=== PATIENT | male | born 1960 | race Caucasian/White ===

== ENCOUNTER → 2016-07-22 | Outpatient (CLI) | payer OTHER ==
[2016-07-22 14:37] LABS: Blood Urea Nitrogen 10 mg/dL (9-20); Non-African American GFR(MDRD) >60 (>60 ml/min/1.73 sqM)
--- NOTE | 2016-07-22 15:28 | CT ---
EXAMINATION TYPE: CT brain w con DATE OF EXAM: 07/22/2016 3:12 PM COMPARISON: NONE HISTORY: Lung cancer. Headache. CT DLP: 1029.90 mGycm Automated exposure control for dose reduction was used. CONTRAST: CT scan of the head is performed with IV Contrast, patient injected with 100 ml mL of Omnipaque 300. FINDINGS: There is tubular and vermiform enhancement involving the left frontal lobe. Periventricular white mat ter shows patchy low attenuation. There is cortical atrophy. No focal mass. No hydrocephalus or hemor rhage suspected. The ventricles and sulci are within normal limits in size. The globes are intact an d the visualized sinuses are clear. IMPRESSION: Findings thought likely to represent vascular malformation left frontal lobe, brain MRI with and with out contrast suggested
== END | disposition home or self-care (01) ==
LOC: RADCTMAIN 13:36
PROVIDERS: ATTEND Internal Medicine Hematology & Oncology
DX: C34.32 Malignant neoplasm of lower lobe, left bronchus or lung (principal); R51 Headache
CPT/HCPCS: 82565; 84520; 70460; 36415; Q9967

== ENCOUNTER → 2016-08-08 | Outpatient (CLI) | payer OTHER ==
--- NOTE | 2016-08-08 17:08 | MR ---
EXAMINATION TYPE: MR brain wo/w con DATE OF EXAM: 08/08/2016 COMPARISON: CT brain July 22, 2016. HISTORY: Lung CA, headaches TECHNIQUE: Multiplanar, multisequence images of the brain and brainstem is performed without and with IV contras t, utilizing 20 mL intravenous MultiHance . FINDINGS: Diffusion weighted images demonstrate no evidence of a recent infarct or other diffusion ab normality. There is no worrisome extra-axial fluid collection. The ventricular system and cisternal spaces are normal in size and appearance. The brain volume is age appropriate. Septum pellucidum ve rgae is present. There are scattered foci of T2 hyperintensity seen throughout the deep and periventr icular white matter bilaterally. Approximately 40 scattered lesions are present. Lesions are nonspeci fic in appearance and distribution but most likely on basis of product of chronic small vessel ischem ic change in patient of this age. Midline structures demonstrate normal morphology. The craniocervical junction appears within normal limits. Post contrast images demonstrate no suspicious enhancing intraparenchymal mass. Correspondin g to CT there prominent small vessels anterior left temporal regions bilaterally, correlating with pr ominent collateral or branching vessels possibly related to small caliber left middle cerebral artery . No suspicious nodular enhancement is present. The dural venous sinuses appear patent. The visualize d sinuses are clear and the globes are intact. IMPRESSION: No worrisome enhancing intraparenchymal mass is seen to suggest metastatic disease. Moder ate nonspecific white matter changes most likely on basis of chronic small vessel ischemic change.
== END | disposition home or self-care (01) ==
LOC: RADMRIMAIN 14:00
PROVIDERS: ATTEND Internal Medicine Hematology & Oncology
DX: R90.82 White matter disease, unspecified (principal); C34.90 Malignant neoplasm of unspecified part of unspecified bronchus or lung
CPT/HCPCS: 70553; A9577

== ENCOUNTER → 2016-08-14 | Outpatient (CLI) | payer OTHER ==
--- NOTE | 2016-08-31 14:47 | CT ---
EXAMINATION TYPE: CT ChestAbdPelvis w con DATE OF EXAM: 08/14/2016 INDICATION: Lung CA follow up COMPARISON: 04/17/2016 CT chest abdomen pelvis [facility] CT DLP: 1758 mGycm CONTRAST: Performed with Oral Contrast and with IV Contrast, patient injected with 100 mL of Omnipaque 300. TECHNIQUE: Axial images at 5 mm thick sections. Reconstructed images in the coronal plane. Delayed images through the kidneys. Images are presented 08/31/2016 upon receipt the comparison CT images. FINDINGS: CT CHEST: Portion of the thyroid visualized is normal. There is a left lower lobe heterogenous mass measuring 6.2 transverse by 4.0 AP by 7.0 craniocaudal d imension. This is smaller than the comparison of 2 04/17/2016. There is a hyperdense 1.2 cm subcarinal lymph node. Consolidation with air bronchograms is along the left mediastinal border. A small left pleural effusion is present. The ascending aorta diameter at the level of the main pulmonary artery is 3.4 cm. The main pulmonary artery diameter at the bifurcation is 3.0 cm. There is a filling defect within the left main pulmonary artery suggestive for thrombus extending int o the left lower lobe. CT ABDOMEN: Liver: Normal Spleen: Normal Pancreas: Normal Adrenal glands: The adrenal glands are normal. Gallbladder: Normal Kidneys: No masses are evident. No hydronephrosis is present. No cysts are present. Delayed images were obtained through the kidneys, which remain unremarkable. Aorta: Vascular calcification is within the aorta. Inferior vena cava: Normal. No abnormal abdominal or pelvic adenopathy is evident. CT PELVIS: Loops of bowel within the abdomen and pelvis are normal. There are loops of bowel which are incom pletely distended or lack oral contrast limiting their evaluation. Oral contrast does extend into the distal colon. Appendix: Normal as visualized. Urinary bladder: Normal. Genitourinary structures: Prostate is prominent. Osseous structures: No suspicious lytic or sclerotic lesions. IMPRESSIONS: 1. Filling defect within the left main pulmonary artery compatible with a thrombus of indeterminate a ge. 2. Left lower lobe mass appears smaller than comparison of April 2016. 3. Small left pleural effusion similar to comparison. 4. Hyperdense subcarinal lymph node, present previously, and stable in size..
== END | disposition home or self-care (01) ==
LOC: RADCTMAIN 06:43
PROVIDERS: ATTEND Internal Medicine Hematology & Oncology
DX: C34.32 Malignant neoplasm of lower lobe, left bronchus or lung (principal); J90 Pleural effusion, not elsewhere classified
CPT/HCPCS: 71260; 74177; Q9967

== ENCOUNTER → 2016-08-29 | Outpatient (CLI) | payer OTHER ==
--- NOTE | 2016-08-31 08:49 | PE ---
EXAMINATION TYPE: PET CT fusion skull to thigh DATE OF EXAM: 08/29/2016 COMPARISON: CT chest abdomen pelvis 08/14/2016, comparison [place] CT chest abdomen pelvis 04/17/2016 Prior PET/CT: None, this is reported as subsequent follow-up, prior PET C Ts are not available at this location. HISTORY: Lung cancer TECHNIQUE: Following the intravenous administration of 13.37 mCi of F-18 FDG, whole body images are performed from the skull base to the midthigh. Images are reviewed on the computer in the coronal, a xial, and sagittal planes. Reconstructed rotating images are created on independent workstation and reviewed on the computer. A localization and attenuation correction CT is performed in conjunction with the PET scan. DLP: 459.70 mGycm SCAN: Subsequent Blood glucose: 95 mg/dL Average Mediastinum SUV: 1.7 Average Liver SUV: 2.25 FINDINGS: NECK: No abnormal uptake THORAX: There is a left lower lobe infrahilar mass which is abnormal uptake measuring 12.1 SUV compat ible with a neoplasm. Slightly lateral and posterior to this mass is a second focal area of radiotrac er accumulation with an SUV value of 6.3 suspicious for neoplasm. Abnormal uptake is within the subca rinal hyperdense lymph node with an SUV value of 5.76 compatible with neoplastic process. ABDOMEN: There is a suggestion of some focal uptake within the cecum at 2 small sites. Normal uptake within the colon could be considered within the differential although these appear somewhat focal. Th e differential could include small neoplastic lesions at this level. This would have an SUV value of 3.66 which is elevated, PET image 219 and adjacent measuring SUV value of 3.31, PET image 216. There is a subtle area of uptake posterior to the liver within the fat is may be retroperitoneal. Thi s has an SUV value 1.05 which is intermediate. This may be too small for accurate evaluation or could be an inflammatory change at this level. PET image 181 PELVIS: No abnormal uptake OSSEOUS STRUCTURES: No abnormal uptake LOCALIZATION CT: Ascending thoracic aorta at the level of the main pulmonary artery is 3.6 cm. The ma in pulmonary artery at the bifurcation is 3.3 cm. Soft tissue thickening along the left mediastinal b order is again evident extending into the left hilar region. This appears to encase and narrow the li ngular bronchus. Left lower lobe consolidation is present. Subcarinal lymph node appears somewhat hyp erdense and enlarged measuring 1.2 cm. The left pleural effusion is less well visualized than the [facility] 08/15/2015 CT with contrast. COMPARISON: Left lower lobe mass appears smaller than the April 2016 comparison and likely smaller than the 08/14/2016 CT comparison. IMPRESSION: 1. Abnormal uptake within the left lower lobe mass compatible with neoplasm. This may be smaller than comparison CT. 2. Second focal area suspicious for neoplasm slightly posterior inferior and lateral to the larger ne oplasm. 3. Suspected metastatic lymph node subcarinal region. 4. Two small focal areas within the cecum with elevated SUV value. Small neoplasms within this region are not excluded. It is possible to have normal uptake within the colon although these 2 areas appea r more focal than expected for typical normal uptake.
== END | disposition home or self-care (01) ==
LOC: RADPETMAIN 08:11
PROVIDERS: ATTEND Internal Medicine Hematology & Oncology
DX: C34.32 Malignant neoplasm of lower lobe, left bronchus or lung (principal)
CPT/HCPCS: 78815; A9552

== ENCOUNTER → 2016-09-08 | Outpatient (CLI) | payer OTHER ==
[2016-09-08 14:01] LABS: Blood Urea Nitrogen 11 mg/dL (9-20); Non-African American GFR(MDRD) >60 (>60 ml/min/1.73 sqM)
--- NOTE | 2016-09-08 14:02 | US ---
EXAMINATION TYPE: US venous doppler duplex LE BI DATE OF EXAM: 09/08/2016 1:32 PM COMPARISON: NONE CLINICAL HISTORY: 56-year-old male C34.32 lung ca. Bilateral edema SIDE PERFORMED: Bilateral TECHNIQUE: The lower extremity deep venous system is examined utilizing real time linear array sonog [place] with graded compression, doppler sonography and color-flow sonography. FINDINGS: VESSELS IMAGED: External Iliac Vein (EIV) Common Femoral Vein Deep Femoral Vein Greater Saphenous Vein * Femoral Vein Popliteal Vein Small Saphenous Vein * Proximal Calf Veins (* superficial vessels) Right Leg: Negative for DVT Left Leg: Negative for DVT IMPRESSION: No evidence for DVT within the bilateral lower extremities imaged from the groin to the upper calves.
--- NOTE | 2016-09-08 14:58 | CT ---
EXAMINATION TYPE: CT angio chest DATE OF EXAM: 09/08/2016 COMPARISON: 08/14/2016 HISTORY: 56-year-old male with known lung CA. Shortness of breath. TECHNIQUE: Contiguous axial scanning of the chest performed with IV Contrast, patient injected with 1 00 mL of Omnipaque 350. Coronal/sagittal reconstructions performed. CT DLP: 210.9 mGycm Automated exposure control for dose reduction was used. FINDINGS: The heart is normal size without pericardial effusion. Aorta is normal caliber with conventional arch vessel branching anatomy. Subcarinal lymph node redemonstrated measuring 1.2 cm. Otherwise, no convincing thoracic lymphadenopa thy. Satisfactory opacification of the pulmonary arterial system without evidence for pulmonary embolus. There is left hilar, infrahilar, and extensive lower lobe consolidation encasing bronchi, cutting off the lingual bronchus, and markedly narrowing the left lower lobe and more distal pulmonary arterial branches. Abnormal density also extends into the medial left upper lobe as seen previously. Small left pleural effusion. Overall appearance is similar to 08/14/2016. There is some mosaic attenua tion seen throughout portions of the aerated left lung suggesting small airways disease. Mild diffuse bronchial wall thickening suggests bronchitis or chronic asthma. Visualized upper abdomen shows no gross abnormality. Bones: No osseous destructive process. IMPRESSION: 1. NO EVIDENCE FOR PULMONARY EMBOLUS. THE EXTENSIVE LEFT-SIDED PERIHILAR AND LOWER LOBE CONSOLIDATION /MASS ENCASES BRONCHI AND VESSELS, SEVERELY NARROWING LOWER LOBE PULMONARY ARTERIAL BRANCHES. 2. STABLE METASTATIC SUBCARINAL LYMPH NODE.
== END | disposition home or self-care (01) ==
LOC: RADCTMAIN 12:33
PROVIDERS: ATTEND Internal Medicine Hematology & Oncology
DX: C34.32 Malignant neoplasm of lower lobe, left bronchus or lung (principal); C77.1 Secondary and unspecified malignant neoplasm of intrathoracic lymph nodes; R22.43 Localized swelling, mass and lump, lower limb, bilateral; I28.8 Other diseases of pulmonary vessels
CPT/HCPCS: 82565; 84520; 93970; 71275; 36415; Q9967

== ENCOUNTER → 2016-11-03 | Outpatient (CLI) | payer OTHER ==
[2016-11-03 13:52] LABS: Blood Urea Nitrogen 11 mg/dL (9-20); Non-African American GFR(MDRD) >60 (>60 ml/min/1.73 sqM)
--- NOTE | 2016-11-03 15:47 | CT ---
EXAMINATION TYPE: CT ChestAbdPelvis w con DATE OF EXAM: 11/03/2016 INDICATION: Follow up scan per patient. history of lung cancer. COMPARISON: 09/08/[address] chest abdomen pelvis 08/14/2016 CT DLP: 686.9 mGycm CONTRAST: Performed with Oral Contrast and with IV Contrast, patient injected with 100 mL of Omnipaque 300. TECHNIQUE: Axial images at 5 mm thick sections. Reconstructed images in the coronal plane. Delayed images through the kidneys. FINDINGS: CT CHEST: Portion of the thyroid visualized is normal. There is a minimal loculated fluid collection at the posterior left upper lobe. Large soft tissue den sities in the left perihilar region. Note is made of filling defect within the main left pulmonary ar et[place] with some minimal irregular wall. This extends towards a calcification posteriorly. This exam is compared with 09/08/2016. This was present previously however, this is now obstructed the left lower lobe pulmonary artery. This appears to be within the left main pulmonary artery and appears to be tete or. Thrombus could be considered. Couple of small shotty lymph nodes are in the pretracheal space. Enlarged adenopathy is not identifie d. A 1.0 cm hyperdense subcarinal lymph node is smaller than comparison. Left lower lobe mass versus consolidation is present. This measures 6.5 x 4.4 cm whereas this measure d 6.2 x 4.0 cm previously. The ascending aorta diameter at the level of the main pulmonary artery is 3.6 cm. The main pulmonary artery diameter at the bifurcation is 2.[address] ABDOMEN: Liver: Normal Spleen: Normal Pancreas: Normal Adrenal glands: The adrenal glands are normal. Gallbladder: Normal Kidneys: No masses are evident. No hydronephrosis is present. No cysts are present. Delayed images were obtained through the kidneys, which remain unremarkable. There is a new nodule measuring 1.2 cm posterior and lateral to the right mid kidney. Series 3 image 86. Metastatic lesion suspected. Aorta: Normal Inferior vena cava: Normal. CT PELVIS: Loops of bowel within the abdomen and pelvis are normal. There are loops of bowel which are incompl etely distended or lack oral contrast limiting their evaluation. Appendix: Normal as visualized. Urinary bladder: Normal. Genitourinary structures: Prostate is prominent contains calcification. Osseous structures: No suspicious lytic or sclerotic lesions. Facet degenerative changes within the l umbar spine. IMPRESSIONS: 1. Slight change in the left lower lobe lung mass size. 2. New nodule posterior lateral to the right kidney suspected to be a metastatic soft tissue deposit. 3. Enlarging filling defect left main pulmonary artery appears to now obstruct the left lower lobe pu lmonary artery. This was present previously but is increased in size and is suspected to be tumor.
== END | disposition home or self-care (01) ==
LOC: RADCTMAIN 13:06
PROVIDERS: ATTEND Internal Medicine Hematology & Oncology
DX: C34.32 Malignant neoplasm of lower lobe, left bronchus or lung (principal); N28.89 Other specified disorders of kidney and ureter; I77.89 Other specified disorders of arteries and arterioles
CPT/HCPCS: 82565; 84520; 71260; 74177; 36415; Q9967

== ENCOUNTER 2016-11-23 00:37 | Inpatient (IN) | payer OTHER ==
[2016-11-23] MEDS ORDERED: SODIUM CHLORIDE 0.9% 500 ML IV STA (00:55)
[2016-11-23] MEDS ORDERED: DILTIAZEM 125 MG in SODIUM CHLORIDE 0.9% 100 ML IV ONE (00:56)
[2016-11-23] MEDS ORDERED: DILTIAZEM 5 MG/ML 5 ML VIAL IVP STA (00:56)
[2016-11-23 01:10] LABS: Basophils # (A) 0.1 k/uL (0-0.2); Basophils % (A) 1 %; CH 30.9; CHCM 31.9; Eosinophils # (A) 0.2 k/uL (0-0.7); Eosinophils % (A) 2 %; HCT 47.6 % (39.0-53.0); HDW 3.19; HGB 15.4 gm/dL (13.0-17.5); Hypochromasia Slight; Luc # (Auto) 0.33; Luc % (Auto) 3; Lymphocytes % (A) 8 %; MCH 31.4 pg (25.0-35.0); MCHC 32.4 g/dL (31.0-37.0); Mean Platelet Volume 6.4; Monocytes # (A) 1.5 k/uL (0-1.0); Monocytes % (A) 12 %; Neutrophils # (A) 9.7 k/uL (1.3-7.7); Neutrophils % (A) 76 %; RBC 4.91 m/uL (4.30-5.90); RDW 14.7 % (11.5-15.5); WBC 12.8 k/uL (3.8-10.6); WBC (Perox) 12.59
--- NOTE | 2016-11-23 01:11 | ED ---
Chest Pain HPI - General Chief Complaint: Chest Pain Stated Complaint: Chest pain Time Seen by Provider: 11/23/16 00:52 Source: patient Mode of arrival: wheelchair Limitations: no limitations - History of Present Illness Initial Comments: This patient is a 56-year-old man who presents to be evaluated for chest pain. Patient states that this woke him from sleep 2 hours ago. He indicates the substernal area. He states that its a heavy feeling. It is worse if he walks. It is moderate intensity. The patient has not noted any relieving factors. The pain was accompanied by feeling short of breath and also being dyspneic. The patient notes that he had been released from one today around 3 PM. He had been admitted there for 3 days to have evaluation for chest pain. The patient and his relate that he was diagnosed with a blood clot in the lung, and he was started on Lovenox today prior to leaving there. They believe that the last dose of that was around 3 PM just before he was discharged. Patient has history of lung cancer. He states that he has finished his chemotherapy and he was due to start immunotherapy on Wednesday but was at instead. MD Complaint: chest pain Onset/Timin -: hour(s) Onset: awoke with symptoms Pain Location: substernal Pain Radiation: none Severity: severe Quality: heaviness Consistency: constant Improves With: nothing Worsens With: exertion Anginal Symptoms: diaphoresis, dyspnea Treatments Prior to Arrival: none - Related Data Home Medications Medication Instructions Recorded Confirmed Enoxaparin [Lovenox] 80 mg SQ Q12H 11/23/16 11/23/16 Allergies Allergy/AdvReac Type Severity Reaction Status Date / Time No Known Allergies Allergy Verified 11/23/16 00:45 Review of Systems ROS Statement: Those systems with pertinent positive or pertinent negative responses have been documented in the HPI. ROS Other: All systems not noted in ROS Statement are negative. Constitutional: Reports: fever. Denies: chills Respiratory: Reports: dyspnea. Denies: cough, hemoptysis Cardiovascular: Reports: chest pain Gastrointestinal: Denies: abdominal pain, vomiting, diarrhea Genitourinary: Denies: dysuria, hematuria Musculoskeletal: Denies: back pain Skin: Denies: rash Neurological: Denies: headache, weakness, numbness EKG Findings - EKG Results: EKG: normal axis, normal QRS EKG shows: atrial fibrillation (Rate approximately 170 bpm) - Blocks, [place], Hypertrophy, ST Abn: Chamber hypertrophy or enlargement: only voltage criteria for left ventricular hypertrophy Repolarization changes or abnormalities: ST suggestive of injury Past Medical History Past Medical History: Cancer Additional Past Medical History / Comment(s): Lung Ca History of Any Multi-Drug Resistant Organisms: None Reported Past Surgical History: No Surgical Hx Reported Past Psychological History: No Psychological Hx Reported Smoking Status: Former smoker Past Alcohol Use History: Daily Past Drug Use History: None Reported General Exam Limitations: no limitations General appearance: alert, in distress Head exam: Present: atraumatic, normocephalic Eye exam: Present: normal appearance. Absent: scleral icterus, conjunctival injection ENT exam: Present: normal oropharynx Respiratory exam: Present: wheezes, decreased breath sounds (Left base). Absent : respiratory distress, rales, rhonchi, stridor, chest wall tenderness Cardiovascular Exam: Present: tachycardia (Rate approximately 152 at my exam), irregular rhythm, systolic murmur (Grade 1/6 systolic ejection murmur). Absent : diastolic murmur, rubs, gallop GI/Abdominal exam: Present: soft, normal bowel sounds, hernia (There does appear to be a small umbilical hernia without peritoneal signs. There is minimal tenderness at the hernia. The patient states he did have ultrasound of this while he was in the hospital). Absent: distended, tenderness, guarding, rebound Extremities exam: Present: normal inspection, normal capillary refill. Absent: pedal edema, calf tenderness Back exam: Present: normal inspection. Absent: CVA tenderness (R), CVA tenderness (L) Neurological exam: Present: alert Skin exam: Present: warm, dry, intact, normal color. Absent: rash Course Vital Signs 11/23/16 11/23/16 11/23/16 00:41 01:03 01:16 Temperature 96.9 F L Pulse Rate 83 160 H 157 H Respiratory 20 22 20 Rate Blood Pressure 82/50 89/57 O2 Sat by Pulse 97 97 96 Oximetry 11/23/16 11/23/16 01:57 02:35 Temperature 98.6 F Pulse Rate 98 92 Respiratory 20 20 Rate Blood Pressure 109/59 107/62 O2 Sat by Pulse 97 98 Oximetry Chest Pain MDM - MDM This patient is 56-year-old man presenting with the acute onset of chest pain tonight. Patient is in atrial fibrillation with rapid ventricular rate and per the patient and his this is a new diagnosis. Patient is started on Cardizem. In addition, he is sent for CT of the chest to rule out worsening of the pulmonary embolism, as he is not yet therapeutic with Coumadin. He has been given first dose of Lovenox but that was only today. The patient's chest CT does show pleural effusion. There may possibly be a component of pneumonia and there may be component of pulmonary infarct on the left. Patient be admitted with consult to oncology, consult cardiology, and consult to pulmonology. He has reverted to sinus rhythm with the Cardizem and his pain has resolved. Critical Care Time Critical Care Time: Yes (45 minutes) Disposition Clinical Impression: Atrial fibrillation with RVR, Recurrent cancer of left lung of unknown cell type, Pulmonary embolism, Pleural effusion Narrative: Possible pneumonia Disposition[facility] Condition: Serious Referrals: Anand Charlton MD [Primary Care Provider] - 1-2 days
[2016-11-23 01:21] LABS: INR 1.4 (<1.2); Partial Thromboplastin Time 29.2 sec (22.0-30.0); Prothrombin Time 13.5 sec (9.0-12.0)
[2016-11-23 01:22] LABS: Anion Gap 16 mmol/L; Calcium 10.1 mg/dL (8.4-10.2); Carbon Dioxide 21 mmol/L (22-30); Chloride 102 mmol/L (98-107); Glucose 110 mg/dL (74-99); Non-African American GFR(MDRD) >60 (>60 ml/min/1.73 sqM); Sodium 139 mmol/L (137-145); Total Bilirubin 1.2 mg/dL (0.2-1.3); Total Protein 7.9 g/dL (6.3-8.2)
[2016-11-23] MEDS ORDERED: SODIUM CHLORIDE 0.9% 1,000 ML IV STA (01:22)
[2016-11-23 01:28] LABS: Blood Urea Nitrogen 12 mg/dL (9-20); Potassium 4.5 mmol/L (3.5-5.1)
[2016-11-23] MEDS ORDERED: RX INFO: IV CONTRAST WAS GIVEN 1 EACH MISC MISCELLANE PRN (01:28)
[2016-11-23 01:29] LABS: ALT 35 U/L (21-72); AST 24 U/L (17-59); Alkaline Phosphatase 113 U/L (38-126)
[2016-11-23 01:52] LABS: Creatine Kinase MB 0.9 ng/mL (0.0-2.4); Troponin I 0.021 ng/mL (0.000-0.034)
--- NOTE | 2016-11-23 02:16 | XR ---
EXAM: XR Chest, 1 View CLINICAL HISTORY: Chest pain. TECHNIQUE: Frontal view of the chest. COMPARISON: CT dated 11/23/2016 and 11/03/2016. FINDINGS: Lungs: Near-complete opacification of the left hemithorax with evidence of volume loss and mild leftward mediastinal shift. Pleural space: No right-sided pleural effusion. Left pleural effusion not excluded. No evidence of pneumothorax. Heart: Cardiac silhouette difficult to assess due to left lung opacity. Mediastinum: Mild leftward mediastinal shift with tracheal deviation. Evaluation of mediastinum is otherwise limited due to left lung opacity. Bones/joints: Unremarkable. IMPRESSION: 1. Near-complete opacification of the left hemithorax with evidence of volume loss and mild leftward mediastinal shift. Findings may represent atelectasis and/or infiltrate with underlying mass or other etiology not excluded. Recommend clinical correlation and correlation with CT examination. 2. Left pleural effusion not excluded. No right-sided pleural effusion or evidence of pneumothorax.
[2016-11-23] MEDS ORDERED: NITROGLYCERIN SL TABS 0.4 MG TAB SUBLINGUAL PRN (03:08)
[2016-11-23] MEDS ORDERED: PIPERACILLIN-TAZOBACTAM 3.375 GM in DEXTROSE/WATER 1 50ML.BAG IVPB STA (03:14)
--- NOTE | 2016-11-23 03:27 | CT ---
EXAM: CT Angiography Chest With Intravenous Contrast CLINICAL HISTORY: Pain. Left lung consolidation. Recent diagnosis of PE. History of lung cancer. Rule out pulmonary embolism. TECHNIQUE: Axial computed tomographic angiography images of the chest with intravenous contrast using pulmonary embolism protocol. MIP reconstructed images were created and reviewed. Coronal and sagittal reformatted images were created and reviewed. CTDI is 3.00, 56.40, 4.70 mGy and DLP is 163.30 mGy-cm. This CT exam was performed using one or more of the following dose reduction techniques: automated exposure control, adjustment of the mA and/or kV according to patient size, and/or use of iterative reconstruction technique. CONTRAST: 75 mL of Omnipaque 350 administered intravenously. COMPARISON: CT dated 11/03/2016 and 09/08/2016. FINDINGS: Pulmonary arteries: Again visualized is large eccentric filling defect within the left pulmonary artery with occlusion of left lower lobe pulmonary artery, similar compared to prior CTA. Aorta: No acute findings. No thoracic aortic aneurysm or dissection. Lungs: Increased opacification and volume loss of the left lung with occlusion of left upper lobe bronchi with near complete opacification and/or collapse of the left lung. Portion of the aerated left lung demonstrates opacity and there are dilated airways and/or cavitary changes in the left lower lobe. Previously seen left lung mass not well delineated on current examination due to extensive opacification. Apparent surgical clips posterior to the left hilum, stable. Pleural space: Small left pleural effusion with loculation not excluded. No right pleural effusion. No pneumothorax. Heart: No cardiomegaly. No significant pericardial effusion. No evidence of RV dysfunction. Bones/joints: Stable osseous structures. No acute fracture. Soft tissues: No significant soft tissue abnormality. Lymph nodes: Subcarinal density which may represent calcification or enhancement within subcarinal lymph nodes. IMPRESSION: 1. Redemonstration of large eccentric filling defect within the left pulmonary artery with occlusion of left lower lobe pulmonary artery, similar compared to prior CTA dated 11/03/2016. Findings are suspicious for chronic pulmonary embolism/thrombus. Tumor thrombus is not excluded. 2. Increased opacification and volume loss of the left lung with occlusion of left upper lobe bronchi and near complete opacification and/or collapse of the left lung. Portion of the aerated left lung demonstrates opacity and there are dilated airways and/or cavitary changes in the left lower lobe. Findings may represent combination of atelectasis and/or infiltrate with underlying mass not excluded. Previously seen left lung mass not well delineated on current examination due to extensive opacification of the left hemithorax. 3. Small left pleural effusion. Pleural effusion does not layer dependently at the left lung apex and loculation is not excluded. 4. Subcarinal density which may represent calcification or enhancement within subcarinal lymph nodes or mass. [employer] 11/23/16 03:35 Verify Receipt Verified receipt with Malgorzata in the ER, report handed to Dr. Nguyen on 11/23 03:34 (-04:00)
[2016-11-23] MEDS ORDERED: ENOXAPARIN 80 MG/0.8 ML SYRINGE SQ ONE (04:00)
[2016-11-23] MEDS: SODIUM CHLORIDE 0.9% 1,000 ML IV SCH (04:19)
[2016-11-23 05:33] VITALS: BMI 21.6
[2016-11-23 07:32] LABS: Creatine Kinase MB 1.9 ng/mL (0.0-2.4)
[2016-11-23 07:45] LABS: Troponin I 0.208 ng/mL (0.000-0.034)
[2016-11-23] MEDS: HYDROcodone/APAP 5-325MG 1 EACH TAB PO PRN ×2 (13:14→19:49)
[2016-11-23 13:58] LABS: Creatine Kinase MB 1.7 ng/mL (0.0-2.4)
[2016-11-23 14:06] LABS: Troponin I 0.153 ng/mL (0.000-0.034)
--- NOTE | 2016-11-23 15:27 | P.CRDCN ---
History of Present Illness Consult date: 11/23/16 Requesting physician: Doris Ruiz Reason for Consult (text): new onset afib Chief complaint: chest pain, rapid heart beat History of present illness: This is a pleasant 56-year-old gentleman with history of lung CA, recently completed chemotherapy was anticipating starting immunotherapy. Was recently hospitalized at [facility] after developing chest discomfort, shortness of breath and a cough. He was found to be positive for a large P and was started on Lovenox. He was discharged yesterday was feeling fairly well and woke suddenly from a sleep with complaints of chest discomfort and racing heartbeat. Upon presentation to the emergency department, patient was found to be in atrial fibrillation with rapid ventricular response. CTA of the chest read demonstrated large filling defect within the left pulmonary artery with a portion of the aerated left lung demonstrating opacity and dilated airways and/ or cavitary changes in the left lower lobe which may represent combination of atelectasis and/or infiltrate. Chest x-ray showed near complete opacification of the left hemithorax with evidence of volume loss and mid leftward mediastinal shift and a atelectasis and/or infiltrate with underlying mass, left pleural effusion not excluded. His troponin also came in to be elevated with the first at 0.021 and the second at 0.208, awaiting third. Patient was admitted started on Cardizem drip and his symptoms converted to sinus rhythm. His Lovenox was resumed from home. Cardizem drip is running at 5 mg an hour. Upon examination, patient is resting comfortably in bed. He does continue to complain of some chest discomfort with breathing. Past Medical History Past Medical History: Atrial Fibrillation, Cancer Additional Past Medical History / Comment(s): Lung Ca Radiation(2016) Chemo History of Any Multi-Drug Resistant Organisms: None Reported Past Surgical History: No Surgical Hx Reported Additional Past Surgical History / Comment(s): Tube in chest for infection drainage (2016) Past Anesthesia/Blood Transfusion Reactions: No Reported Reaction Past Psychological History: No Psychological Hx Reported Smoking Status: Former smoker Past Alcohol Use History: Daily Past Drug Use History: None Reported - Past Family History Father Family Medical History: CVA/TIA, Myocardial Infarction ([place]) Mother Family Medical History: Cancer Additional Family Medical History / Comment(s): Breast/ lymph nodes cancer Medications and Allergies Home Medications Medication Instructions Recorded Confirmed Type Enoxaparin [Lovenox] 80 mg SQ Q12H 11/23/16 11/23/16 History HYDROcodone/APAP 5-325MG [[place] 1 tab PO Q12H PRN 11/23/16 11/23/16 History 5-325] Zolpidem [Ambien] 10 mg PO HS 11/23/16 11/23/16 History Allergies Allergy/AdvReac Type Severity Reaction Status Date / Time No Known Allergies Allergy Verified 11/23/16 08:29 Physical Exam Vitals: Vital Signs Temp Pulse Pulse Resp BP BP Pulse Ox 11/23/16 11:47 76 17 130/71 97 11/23/16 08:00 98.3 F 74 17 118/70 97 11/23/16 05:49 97 F L 85 16 120/72 96 11/23/16 04:08 98.4 F 77 16 105/57 99 11/23/16 03:39 97 F L 85 16 120/72 96 11/23/16 02:35 98.6 F 92 20 107/62 98 11/23/16 01:57 98 20 109/59 97 11/23/16 01:16 157 H 20 89/57 96 11/23/16 01:03 160 H 22 97 11/23/16 00:41 96.9 F L 83 20 82/50 97 Intake and Output 11/23/16 11/23/16 11/23/16 06:59 14:59 22:59 Intake Total 40 265 Balance 40 265 Intake: IV 40 0.96 @40 mls/hr 40 Intake, IV Titration 25 Amount Diltiazem 125 mg In 25 Sodium Chloride 0.9% 100 ml @ 5 MG/HR 5 mls/hr IV .Q24H ONE Rx#:[id number] Oral 240 Other: Voiding Method Toilet # Voids 1 Weight 78.5 kg PHYSICAL EXAMINATION: HEENT: Head is atraumatic, normocephalic. Pupils equal, round. Neck is supple. There is no elevated jugular venous pressure. HEART EXAMINATION: Heart sounds regular, S1 and S2 normal. No murmur or gallop heard. CHEST EXAMINATION: Lungs reveal diminished air entry in the left. Chest discomfort with deep breathing. ABDOMEN: Soft, nontender. Bowel sounds are heard. No organomegaly noted. EXTREMITIES: 2+ peripheral pulses with no evidence of peripheral edema and no calf tenderness noted. NEUROLOGIC patient is awake, alert and oriented x3. . Results 11/23/16 00:56 11/23/16 00:56 Cardiac Enzymes 11/23/16 11/23/16 11/23/16 Range/Units 00:56 00:56 06:30 AST 24 (17-59) U/L CK-MB (CK-2) 0.9 1.9 (0.0-2.4) ng/mL Troponin I 0.021 0.208 H* (0.000-0.034) ng/mL 11/23/16 Range/Units 13:13 AST (17-59) U/L CK-MB (CK-2) 1.7 (0.0-2.4) ng/mL Troponin I 0.153 H* (0.000-0.034) ng/mL Coagulation 11/23/16 Range/Units 00:56 PT 13.5 H (9.0-12.0) sec APTT 29.2 (22.0-30.0) sec CBC 11/23/16 Range/Units 00:56 WBC 12.8 H (3.8-10.6) k/uL RBC 4.91 (4.30-5.90) m/uL Hgb 15.4 (13.0-17.5) gm/dL Hct 47.6 (39.0-53.0) % Plt Count 676 H (150-450) k/uL Comprehensive Metabolic Panel 11/23/16 Range/Units 00:56 Sodium 139 (137-145) mmol/L Potassium 4.5 (3.5-5.1) mmol/L Chloride 102 (98-107) mmol/L Carbon Dioxide 21 L (22-30) mmol/L BUN 12 (9-20) mg/dL Creatinine 1.00 (0.66-1.25) mg/dL Glucose 110 H (74-99) mg/dL Calcium 10.1 (8.4-10.2) mg/dL AST 24 (17-59) U/L ALT 35 (21-72) U/L Alkaline Phosphatase 113 (38-126) U/L Total Protein 7.9 (6.3-8.2) g/dL Albumin 4.3 (3.5-5.0) g/dL Current Medications Generic Name Dose Route Start Last Admin Trade Name Freq PRN Reason Stop Dose Admin Hydrocodone Bitart/Acetaminophen 1 each 11/23/16 12:10 11/23/16 13:14 Irene 5-325 PO 1 each Q6H PRN Administration Moderate Pain Aspirin 325 mg 11/24/16 09:00 Aspirin PO DAILY MIMA Sodium Chloride 1,000 mls @ 20 mls/hr 11/23/16 03:15 11/23/16 04:19 Saline 0.9% IV 20 mls/hr .Q24H MIMA Administration Metoprolol Tartrate 25 mg 11/23/16 21:00 Lopressor PO BID MIMA Miscellaneous Information 1 each 11/23/16 01:28 11/23/16 02:44 Rx Info: Iv Contrast Was Given MISCELLANE 11/25/16 01:29 1 each DAILY PRN Administration Per Protocol Nitroglycerin 0.4 mg 11/23/16 03:08 Nitrostat SUBLINGUAL Q5M PRN Chest Pain Rivaroxaban 15 mg 11/23/16 17:30 Xarelto PO BID-W/MEALS MIMA Intake and Output 11/23/16 11/23/16 11/23/16 06:59 14:59 22:59 Intake Total 40 265 Balance 40 265 Intake: IV 40 0.96 @40 mls/hr 40 Intake, IV Titration 25 Amount Diltiazem 125 mg In 25 Sodium Chloride 0.9% 100 ml @ 5 MG/HR 5 mls/hr IV .Q24H ONE Rx#:[id number] Oral 240 Other: Voiding Method Toilet # Voids 1 Weight 78.5 kg 11/23/16 00:56 11/23/16 00:56 EKG Interpretations (text) Atrial fibrillation with rapid ventricular response Assessment and Plan Plan: Assessment and plan #1 lung CA #2 left pulmonary artery PE #3 new onset paroxysmal atrial fibrillation with rapid ventricular response #4 elevated troponins, consistent with non-ST elevated [place] From cardiology perspective, we will stop Lovenox and start the patient on Xarelto 15mg po BID. we'll start the patient on metoprolol 25 mg by mouth twice a day. Will review echocardiogram results from [facility]. We will manage the patient medically at this time. Further recommendations to follow. DRIVER TRAINEE note has been reviewed, I agree with a documented findings and plan of care. Patient was seen and examined.
--- NOTE | 2016-11-23 16:23 | P.CNPUL ---
History of Present Illness Consult date: 11/23/16 Requesting physician: Anand Charlton Reason for consult: other (Left lung collapse and possible pulmonary embolism) Chief complaint: Chest pain and rapid heart beat History of present illness: This is a 56-year-old white male with history of stage IV bronchogenic carcinoma , recently completed chemotherapy, and anticipating to start immunotherapy. Patient was recently admitted to [facility] with chest discomfort and shortness of breath as well as cough. His CT of the chest showed almost near complete opacification of the left lung, and there was evidence of a large pulmonary thrombus in the left pulmonary artery mostly involving the pulmonary artery to the left lower lobe. The differential diagnoses included pulmonary embolism or filling defect from tumor embolism or tumor around the left pulmonary artery of the left lower lobe. I reviewed the CT of the chest myself , and I agree that there is a large eccentric filling defect within the left pulmonary artery and occlusion of the left lower lobe pulmonary artery very much similar to previous CT angiogram of the chest. Of course the differential diagnoses includes true pulmonary embolism or metastatic tumor involving the left pulmonary artery. Considering the patient's atrial fibrillation and his symptoms related to atrial fibrillation, I would suspect that this is true pulmonary embolism unless proven otherwise. Patient was placed initially on Lovenox, and now he is on Xarelto. I have discussed this patient earlier with Dr. Charlton, and he was wondering whether bronchoscopy could be done on this patient. At this point I feel it is extremely high risk to do bronchoscopy knowing in fact that we may be dealing with extensive pulmonary embolism and I would definitely be reluctant to hold any antiplatelet ventilation therapy at this point. Patient was seen by cardiology, and being treated for his new onset paroxysmal atrial fibrillation with RVR. Review of Systems ROS Statement: Those systems with pertinent positive or pertinent negative responses have been documented in the HPI. ROS Other: All systems not noted in ROS Statement are negative. Constitutional: Reports: fever. Denies: chills Respiratory: Reports: dyspnea. Denies: cough, occasional blood-tinged sputum Cardiovascular: Reports: chest pain Gastrointestinal: Denies: abdominal pain, vomiting, diarrhea Genitourinary: Denies: dysuria, hematuria Musculoskeletal: Denies: back pain Skin: Denies: rash Neurological: Denies: headache, weakness, numbness Psychiatric: No symptoms of active depression. Hematologic: No previous history of clotting bleeding or bruising. Past Medical History Past Medical History: Atrial Fibrillation, Cancer Additional Past Medical History / Comment(s): Lung Ca Radiation(2016) Chemo History of Any Multi-Drug Resistant Organisms: None Reported Past Surgical History: No Surgical Hx Reported Additional Past Surgical History / Comment(s): Tube in chest for infection drainage (2016) Past Anesthesia/Blood Transfusion Reactions: No Reported Reaction Past Psychological History: No Psychological Hx Reported Smoking Status: Former smoker Past Alcohol Use History: Daily Past Drug Use History: None Reported - Past Family History Father Family Medical History: CVA/TIA, Myocardial Infarction ([place]) Mother Family Medical History: Cancer Additional Family Medical History / Comment(s): Breast/ lymph nodes cancer Medications and Allergies Home Medications Medication Instructions Recorded Confirmed Type Enoxaparin [Lovenox] 80 mg SQ Q12H 11/23/16 11/23/16 History HYDROcodone/APAP 5-325MG [[place] 1 tab PO Q12H PRN 11/23/16 11/23/16 History 5-325] Zolpidem [Ambien] 10 mg PO HS 11/23/16 11/23/16 History Allergies Allergy/AdvReac Type Severity Reaction Status Date / Time No Known Allergies Allergy Verified 11/23/16 08:29 Physical Exam Vitals: Vital Signs Temp Pulse Pulse Resp BP BP Pulse Ox 11/23/16 15:52 77 16 133/84 96 11/23/16 11:47 76 17 130/71 97 11/23/16 08:00 98.3 F 74 17 118/70 97 11/23/16 05:49 97 F L 85 16 120/72 96 11/23/16 04:08 98.4 F 77 16 105/57 99 11/23/16 03:39 97 F L 85 16 120/72 96 11/23/16 02:35 98.6 F 92 20 107/62 98 11/23/16 01:57 98 20 109/59 97 11/23/16 01:16 157 H 20 89/57 96 11/23/16 01:03 160 H 22 97 11/23/16 00:41 96.9 F L 83 20 82/50 97 Intake and Output 11/23/16 11/23/16 11/23/16 06:59 14:59 22:59 Intake Total 40 265 Output Total 400 Balance 40 265 -400 Intake: IV 40 0.96 @40 mls/hr 40 Intake, IV Titration 25 Amount Diltiazem 125 mg In 25 Sodium Chloride 0.9% 100 ml @ 5 MG/HR 5 mls/hr IV .Q24H ONE Rx#:[id number] Oral 240 Output: Urine 400 Other: Voiding Method Toilet # Voids 1 # Bowel Movements 0 Weight 78.5 kg General appearance: alert, not in any form of distress, patient seems comfortable. Head exam: Present: atraumatic, normocephalic Eye exam: Present: normal appearance. Absent: scleral icterus, conjunctival injection ENT exam: Present: normal oropharynx Respiratory exam: Present: wheezes, decreased breath sounds (Left base). Absent : respiratory distress, rales, rhonchi, stridor, chest wall tenderness Cardiovascular Exam: Present: tachycardia (Rate approximately 152 at my exam), irregular rhythm, systolic murmur (Grade 1/6 systolic ejection murmur). Absent : diastolic murmur, rubs, gallop GI/Abdominal exam: Present: soft, normal bowel sounds, hernia (There does appear to be a small umbilical hernia without peritoneal signs. There is minimal tenderness at the hernia. The patient states he did have ultrasound of this while he was in the hospital). Absent: distended, tenderness, guarding, rebound Extremities exam: Present: normal inspection, normal capillary refill. Absent: pedal edema, calf tenderness Back exam: Present: normal inspection. Absent: CVA tenderness (R), CVA tenderness (L) Neurological exam: Present: alert Skin exam: Present: warm, dry, intact, normal color. Absent: rash Results - Laboratory Findings CBC and BMP: 11/23/16 00:56 11/23/16 00:56 PT/INR, D-dimer PT 13.5 sec (9.0-12.0) H 11/23/16 00:56 INR 1.4 (<1.2) H 11/23/16 00:56 Abnormal lab findings: Abnormal Labs 11/23/16 11/23/16 11/23/16 00:56 00:56 00:56 WBC 12.8 H Plt Count 676 H Neutrophils # 9.7 H Monocytes # 1.5 H PT 13.5 H INR 1.4 H Carbon Dioxide 21 L Glucose 110 H Total Creatine Kinase Troponin I 11/23/16 11/23/16 06:30 13:13 WBC Plt Count Neutrophils # Monocytes # PT INR Carbon Dioxide Glucose Total Creatine Kinase 51 L 53 L Troponin I 0.208 H* 0.153 H* - Diagnostic Findings CT scan - chest: image reviewed (Agree with reading as per the radiologist, I am extremely suspicious that we are dealing with pulmonary embolism involving the left pulmonary artery. 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 2 stage IV bronchogenic carcinoma status post chemotherapy, patient is to be receiving immunotherapy in the near future. 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 4 suspect some component of COPD Recommendation: Agree with present treatment plan utilizing Xarelto, at this point, it is quite risky to hold and granulation therapy and perform bronchoscopy however this could be done on outpatient basis when the patient stabilizes in the next couple of weeks. We'll continue to follow. Time with Patient: Greater than 30
[2016-11-23] MEDS: RIVAROXABAN 15 MG TAB PO SCH (17:48)
[2016-11-23] MEDS ORDERED: ZOLPIDEM 10 MG TAB PO PRN (18:01)
[2016-11-23] MEDS: METOPROLOL TARTRATE 25 MG TAB PO SCH (19:49)
[2016-11-23] MEDS ORDERED: ENOXAPARIN 80 MG/0.8 ML SYRINGE SQ SCH (21:00)
--- NOTE | 2016-11-23 21:42 | P.HPIM ---
History of Present Illness H&P Date: 11/23/16 Chief Complaint: Heart pounding Patient is a 56-year-old male with a known history of lung cancer status post chemotherapy 3 weeks ago and also recently diagnosed with pulmonary embolism 2 days ago at [facility] came to the hospital with complaints of heart pounding fast and short of breath and cough since yesterday. Patient was found to have atrial fibrillation and was started on Cardizem drip. Patient was also started on heparin IV for pulmonary embolism and it fibrillation. Patient says that his chest discomfort is better and denied any other complaints at this time. CTA of the chest read demonstrated large filling defect within the left pulmonary artery with a portion of the aerated left lung demonstrating opacity and dilated airways and/or cavitary changes in the left lower lobe which may represent combination of atelectasis and/or infiltrate. Chest x-ray showed near complete opacification of the left hemithorax with evidence of volume loss and mid leftward mediastinal shift and a atelectasis and /or infiltrate with underlying mass, left pleural effusion not excluded. His troponin also came in to be elevated with the first at 0.021 and the second at 0.208 and 0.153. Review of Systems CONSTITUTIONAL: No fever, no malaise, no fatigue. HEENT: No recent visual problems or hearing problems. Denied any sore throat. CARDIOVASCULAR: Positive chest discomfort and pounding heartbeat, orthopnea, PND , , no syncope. PULMONARY: No cough or sputum, no hemoptysis. GASTROINTESTINAL: No diarrhea, no nausea, no vomiting, no abdominal pain. Normoactive bowel sounds. NEUROLOGICAL: No headaches, no weakness, no numbness. HEMATOLOGICAL: Denies any bleeding or petechiae. GENITOURINARY: Denies any burning micturition, frequency, or urgency. MUSCULOSKELETAL/RHEUMATOLOGICAL: Denies any joint pain, swelling, or any muscle pain. ENDOCRINE: Denies any polyuria or polydipsia. The rest of the 14-point review of systems is negative. Past Medical History Past Medical History: Atrial Fibrillation, Cancer Additional Past Medical History / Comment(s): Lung Ca Radiation(2016) Chemo History of Any Multi-Drug Resistant Organisms: None Reported Past Surgical History: No Surgical Hx Reported Additional Past Surgical History / Comment(s): Tube in chest for infection drainage (2016) Past Anesthesia/Blood Transfusion Reactions: No Reported Reaction Past Psychological History: No Psychological Hx Reported Smoking Status: Former smoker Past Alcohol Use History: Daily Past Drug Use History: None Reported - Past Family History Father Family Medical History: CVA/TIA, Myocardial Infarction ([place]) Mother Family Medical History: Cancer Additional Family Medical History / Comment(s): Breast/ lymph nodes cancer Medications and Allergies Home Medications Medication Instructions Recorded Confirmed Type Enoxaparin [Lovenox] 80 mg SQ Q12H 11/23/16 11/23/16 History HYDROcodone/APAP 5-325MG [[place] 1 tab PO Q12H PRN 11/23/16 11/23/16 History 5-325] Zolpidem [Ambien] 10 mg PO HS 11/23/16 11/23/16 History Allergies Allergy/AdvReac Type Severity Reaction Status Date / Time No Known Allergies Allergy Verified 11/23/16 08:29 Physical Exam Vitals: Vital Signs Temp Pulse Pulse Resp BP BP Pulse Ox 11/23/16 11:47 76 17 130/71 97 11/23/16 08:00 98.3 F 74 17 118/70 97 11/23/16 05:49 97 F L 85 16 120/72 96 11/23/16 04:08 98.4 F 77 16 105/57 99 11/23/16 03:39 97 F L 85 16 120/72 96 11/23/16 02:35 98.6 F 92 20 107/62 98 11/23/16 01:57 98 20 109/59 97 11/23/16 01:16 157 H 20 89/57 96 11/23/16 01:03 160 H 22 97 11/23/16 00:41 96.9 F L 83 20 82/50 97 Intake and Output 11/22/16 11/23/16 11/23/16 22:59 06:59 14:59 Intake Total 40 265 Balance 40 265 Intake: IV 40 0.96 @40 mls/hr 40 Intake, IV Titration 25 Amount Diltiazem 125 mg In 25 Sodium Chloride 0.9% 100 ml @ 5 MG/HR 5 mls/hr IV .Q24H ONE Rx#:[id number] Oral 240 Other: Voiding Method Toilet # Voids 1 Weight 78.5 kg PHYSICAL EXAMINATION: Patient is lying in the bed comfortably, no acute distress, awake alert and oriented.. HEENT: Normocephalic. Neck is supple. Pupils reactive. Nostrils clear. Oral cavity is moist. Ears reveal no drainage. Neck reveals no JVD, carotid bruits, or thyromegaly. CHEST EXAMINATION: Trachea is central. Symmetrical expansion. Left-sided diminished breath sounds. No wheezing CARDIAC: Normal S1, S2 with no gallops. No murmurs ABDOMEN: Soft. Bowel sounds normal. No organomegaly. No abdominal bruits. Extremities reveal no edema. No clubbing or cyanosis Neurologically awake, alert, oriented x3 with well-coordinated movements. Skin: no rash or skin lesions Musculoskeletal: no joint swelling or deformity. Results CBC & Chem 7: 11/23/16 00:56 11/23/16 00:56 Labs: Abnormal Lab Results - Last 24 Hours (Table) 11/23/16 11/23/16 11/23/16 Range/Units 00:56 00:56 00:56 WBC 12.8 H (3.8-10.6) k/uL Plt Count 676 H (150-450) k/uL Neutrophils # 9.7 H (1.3-7.7) k/uL Monocytes # 1.5 H (0-1.0) k/uL PT 13.5 H (9.0-12.0) sec INR 1.4 H (<1.2) Carbon Dioxide 21 L (22-30) mmol/L Glucose 110 H (74-99) mg/dL Total Creatine Kinase (55-170) U/L Troponin I (0.000-0.034) ng/mL 11/23/16 Range/Units 06:30 WBC (3.8-10.6) k/uL Plt Count (150-450) k/uL Neutrophils # (1.3-7.7) k/uL Monocytes # (0-1.0) k/uL PT (9.0-12.0) sec INR (<1.2) Carbon Dioxide (22-30) mmol/L Glucose (74-99) mg/dL Total Creatine Kinase 51 L (55-170) U/L Troponin I 0.208 H* (0.000-0.034) ng/mL Thrombosis Risk Factor Assmnt - Choose All That Apply Each Factor Represents 1 point: Age 41-60 years Each Risk Factor Represents 3 Points: History of DVT/PE Thrombosis Risk Factor Assessment Total Risk Factor Score: 4 Thrombosis Risk Factor Assessment Level: Moderate Risk Assessment and Plan Plan: #1 new onset atrial fibrillation with a rapid regular rate. Likely triggered by thromboembolism in the lung #2 elevated troponin level. 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 History of smoking Plan: Patient is recommended on Cardizem drip and anticoagulation. Cardiology and pulmonary and oncology has been consulted. Radiation oncology was consulted for Palliative radiation due to endobronchial Lung cancer with obstructive atelectasis on the left side. Prognosis is poor. Further recommendations based on the clinical course. Time with Patient: Greater than 30
--- NOTE | 2016-11-23 23:48 | P.CONS ---
History of Present Illness - Reason for Consult Consult date: 11/23/16 - History of Present Illness Mr Loya is a pleasant WM, who had presented in early 2015 with c/o persistent cough, which had not responded to treatments for pneumonia. CT on revealed a 3 cm rt hilar mass, 4 cm left infrahilar mass, 4.3 cm subcarinal node, 2.2 precarinal and 2 cm AP window node. A small left pleural effusion was also noted. He had a bronchoscopy on 07/04/15, with an endobronchial lesion in the LLL, and biopsy positive for squamous cell carcinoma. PET scan on 07/19/15 was positive in the LLL mass, b/l paratracheal, AP window, subcarinal and rt hilar node, and mildly in the left pleura. Thoracentesis was negative. He then proceeded to concurrent chemoRT with weekly Carbo/Taxol, completing that on 10/11/15. He developed a recurrent left pleural effusion, and had a VATS and chest tube placement for empyema and fibrinous pleuritis, in late 10/14. CT chest on 12/25/15 showed decrease in left hydropneumothorax, and was otherwise stable. CT in 04/17 showed progression in the primary site from 2.7 to 3.7 cm. He was started on Carbo/Alimta and had 1 cycle on 05/28/16. His treatment so far had been at [facility] and [facility]. He then had a consultation at the [facility] with Dr Simpson. PET there on 06/03/16 showed a 4.6 x 3.6 cm mass in the LLL, 1.1 cm satellite nodule in the LLL, and a subcarinal node with FDG uptake. Gemzar was recommended for recurrent/stage IV disease. The case was d/w Dr Simpson. Office notes and other reports were reviewed and summarized above. He wanted to have treatment closer to home, and was referred here to establish care. He was started on Gemzar single agent in late 06/15. He is s/p 4 cycles. Computed tomography scan on 11/03/16 showed evidence of progression. There was enlargement of the tumor in the primary site. His was compressing the left pulmonary artery. There was evidence of filling defect in the left pulmonary artery, which which was stated in the formal report, to most likely represent direct invasion by the tumor. The patient had no symptoms at that time. He had also developed a nodule in the periumbilical area suggestive of metastasis. The patient was to start treatment with Opdivo. However he developed shortness of breath or chest pain, and was admitted to [facility] in [place]. He had a CTA done, and was diagnosed with a thrombosis of left pulmonary artery. This appears to be the same filling defect, that was noted in the computed tomography scan from 11/03/16, which most likely represents tumor thrombus. He was placed on anticoagulation. He was subsequently discharged, worsening after that developed worsening of shortness of breath, as well as chest pain. He came into the emergency room, where he was noted to be in atrial fibrillation with rapid ventricular response . He was therefore admitted for further management CT of the chest done his admission now showed opacification of the left hemithorax. There was evidence of progression of the pulmonary artery, as well as left mainstem bronchus. There also appeared to be a left pleural effusion. Consult was placed for further evaluation and recommendation Review of Systems Constitutional: Reports fatigue Eyes: denies blurred vision, denies pain Ears: deny: decreased hearing, ear discharge, earache, tinnitus Ears, nose, mouth and throat: Denies headache, Denies sore throat Cardiovascular: Reports chest pain, Reports palpitations, Reports shortness of breath Respiratory: Reports dyspnea, Reports pain Gastrointestinal: Denies abdominal pain, Denies diarrhea, Denies nausea, Denies vomiting Genitourinary: Reports as per HPI Musculoskeletal: Denies myalgias Integumentary: Reports lesions (tarah umbilical mass- metastatic) Neurological: Denies numbness, Denies weakness Psychiatric: Denies anxiety, Denies depression Endocrine: Denies fatigue, Denies weight change Hematologic/Lymphatic: Reports as per HPI Past Medical History Past Medical History: Atrial Fibrillation, Cancer Additional Past Medical History / Comment(s): Lung Ca Radiation(2016) Chemo History of Any Multi-Drug Resistant Organisms: None Reported Past Surgical History: No Surgical Hx Reported Additional Past Surgical History / Comment(s): Tube in chest for infection drainage (2016) Past Anesthesia/Blood Transfusion Reactions: No Reported Reaction Past Psychological History: No Psychological Hx Reported Smoking Status: Former smoker Past Alcohol Use History: Daily Past Drug Use History: None Reported - Past Family History Father Family Medical History: CVA/TIA, Myocardial Infarction ([place]) Mother Family Medical History: Cancer Additional Family Medical History / Comment(s): Breast/ lymph nodes cancer Medications and Allergies Home Medications Medication Instructions Recorded Confirmed Type Enoxaparin [Lovenox] 80 mg SQ Q12H 11/23/16 11/23/16 History HYDROcodone/APAP 5-325MG [[place] 1 tab PO Q12H PRN 11/23/16 11/23/16 History 5-325] Zolpidem [Ambien] 10 mg PO HS 11/23/16 11/23/16 History Allergies Allergy/AdvReac Type Severity Reaction Status Date / Time No Known Allergies Allergy Verified 11/23/16 08:29 Physical Exam Vitals: Vital Signs Temp Pulse Pulse Resp BP BP Pulse Ox 11/23/16 11:47 76 17 130/71 97 11/23/16 08:00 98.3 F 74 17 118/70 97 11/23/16 05:49 97 F L 85 16 120/72 96 11/23/16 04:08 98.4 F 77 16 105/57 99 11/23/16 03:39 97 F L 85 16 120/72 96 11/23/16 02:35 98.6 F 92 20 107/62 98 11/23/16 01:57 98 20 109/59 97 11/23/16 01:16 157 H 20 89/57 96 11/23/16 01:03 160 H 22 97 11/23/16 00:41 96.9 F L 83 20 82/50 97 Intake and Output 11/22/16 11/23/16 11/23/16 22:59 06:59 14:59 Intake Total 40 145 Balance 40 145 Intake: IV 40 0.96 @40 mls/hr 40 Intake, IV Titration 25 Amount Diltiazem 125 mg In 25 Sodium Chloride 0.9% 100 ml @ 5 MG/HR 5 mls/hr IV .Q24H ONE Rx#:[id number] Oral 120 Other: Voiding Method Toilet # Voids 1 Weight 78.5 kg - Constitutional General appearance: no acute distress - EENT Eyes: EOMI, PERRLA ENT: hearing grossly normal, normal oropharynx - Neck Neck: no lymphadenopathy - Respiratory Respiratory: left: diminished (essentially entire lung field) - Cardiovascular Rhythm: irregularly irregular Heart sounds: normal: S1, S2 - Gastrointestinal 2 cm hard periumbilical mass- stable from recent exam on 11/12/16 General gastrointestinal: normal bowel sounds, soft - Integumentary Integumentary: normal - Neurologic Neurologic: CNII-XII intact - Musculoskeletal Musculoskeletal: generalized weakness, strength equal bilaterally - Psychiatric Psychiatric: A&O x's 3, appropriate affect Results CBC & Chem 7: 11/23/16 00:56 11/23/16 00:56 Labs: Abnormal Lab Results - Last 24 Hours (Table) 11/23/16 11/23/16 11/23/16 Range/Units 00:56 00:56 00:56 WBC 12.8 H (3.8-10.6) k/uL Plt Count 676 H (150-450) k/uL Neutrophils # 9.7 H (1.3-7.7) k/uL Monocytes # 1.5 H (0-1.0) k/uL PT 13.5 H (9.0-12.0) sec INR 1.4 H (<1.2) Carbon Dioxide 21 L (22-30) mmol/L Glucose 110 H (74-99) mg/dL Total Creatine Kinase (55-170) U/L Troponin I (0.000-0.034) ng/mL 11/23/16 Range/Units 06:30 WBC (3.8-10.6) k/uL Plt Count (150-450) k/uL Neutrophils # (1.3-7.7) k/uL Monocytes # (0-1.0) k/uL PT (9.0-12.0) sec INR (<1.2) Carbon Dioxide (22-30) mmol/L Glucose (74-99) mg/dL Total Creatine Kinase 51 L (55-170) U/L Troponin I 0.208 H* (0.000-0.034) ng/mL Chest x-ray: report reviewed CT scan - chest: report reviewed Assessment and Plan (1) Squamous cell carcinoma of lung, stage IV Narrative/Plan: The patient has known squamous cell carcinoma of the lung stage IV, with recent progression, as noted in the history of present illness. This has led to essentially loss of volume of the entire left lung . The findings on the current CTA of progressive even compared to computed tomography scan done on 11/03 . His presenting symptoms are most likely due the progressive atelectasis. The patient is to start salvage therapy with Opdivo. However his performance status is markedly diminished acutely, because of the left lung opacification. He will have a better chance of benefiting from treatment, if his performance status can be improved. Case was discussed extensively with pulmonary medicine, received the patient could be a candidate for bronchoscopy to to assess for possible stent placement or ablation. Case was also discussed with relation oncology. They will assess the patient to see if there could be room for some additional radiation. Status: Acute (2) Pulmonary embolism Narrative/Plan: The patient was diagnosed with pulmonary embolus and [facility], and then again on CTA done here. Of note, these studies were done because of development of new symptoms specifically chest pain, shortness of breath and then into fibrillation with RVR. Over this filling defect was present on the computed tomography scan done on and the patient was relatively asymptomatic. This filling defect is closely associated with the site of progression of the tumor which is, in addition, causing progressive compression of the pulmonary artery, as well as now the left mainstem bronchus. Therefore this is much more likely represents tumor thrombus due to progression of the tumor there than an actual PE. Continue the patient on anticoagulation for now. In any case the patient is in atrial fibrillation. We will revisit the issue of continuing anticoagulation, once patient's scans have been reviewed by radiation oncology and pulmonary medicine Status: Acute
[2016-11-24] MEDS: SODIUM CHLORIDE 0.9% 1,000 ML IV SCH (04:17)
[2016-11-24] MEDS: RIVAROXABAN 15 MG TAB PO SCH (06:22)
[2016-11-24] MEDS: HYDROcodone/APAP 5-325MG 1 EACH TAB PO PRN ×2 (06:59→13:39)
[2016-11-24 07:46] LABS: Cholesterol 179 mg/dL (<200); HDL Cholesterol 48 mg/dL (40-60)
[2016-11-24] MEDS: METOPROLOL TARTRATE 25 MG TAB PO SCH (08:48)
[2016-11-24] MEDS ORDERED: ASPIRIN 325 MG TAB PO SCH (09:00)
--- NOTE | 2016-11-24 09:55 | P.CONS ---
History of Present Illness - Reason for Consult Consult date: 11/23/16 left lung collapse Requesting physician: Anand Charlton - Chief Complaint dyspnea, chest pain - History of Present Illness The patient is a 56-year-old male with a history of stage III non-small cell lung cancer of the left lung, the patient was diagnosed in April 2015. He reportedly underwent chemoradiation at [facility], and unfortunately developed progression of disease within the lung. The patient has been on second line chemotherapy, and recently progressed as well. He was planning to initiate immunotherapy, when he was admitted to the hospital. The patient notes he began having chest pain this past , and was admitted to [facility]. He reported he was also feeling fatigue and more shortness of breath. The patient reports that he would feel dyspneic and have chest pain when ambulating to the bathroom. The patient previously was able to walk much greater distances, and even mow his lawn. While at [place], the patient was diagnosed with a pulmonary embolism, and discharged on anticoagulation. Following his discharge, the patient was subsequently admitted to [facility] when he developed a significant worsening in his chest pain. He was found to be in atrial fibrillation with rapid ventricular response. He was ultimately admitted to the hospital. CT of the chest on November 23 revealed near complete collapse of the left lung, which was a significant change from his prior CT scan on November 03 or the lung was still aerated. Even in November 03, the patient still have a filling defect in the left main pulmonary artery which was present in August, but now more extensive. Review of Systems Constitutional: Denies chills, Denies fever Eyes: denies blurred vision Ears: deny: decreased hearing Ears, nose, mouth and throat: Denies headache Cardiovascular: Reports chest pain, Reports dyspnea on exertion, Reports irregular heart beat Respiratory: Reports dyspnea Musculoskeletal: Denies neck pain Neurological: Denies seizures, Denies sensory deficit Psychiatric: Denies confusion Past Medical History Past Medical History: Atrial Fibrillation, Cancer Additional Past Medical History / Comment(s): Lung Ca Radiation(2016) Chemo History of Any Multi-Drug Resistant Organisms: None Reported Past Surgical History: No Surgical Hx Reported Additional Past Surgical History / Comment(s): Tube in chest for infection drainage (2016) Past Anesthesia/Blood Transfusion Reactions: No Reported Reaction Past Psychological History: No Psychological Hx Reported Smoking Status: Former smoker (30 year history smokig 1.5 ppd) Past Alcohol Use History: Daily Past Drug Use History: None Reported - Past Family History Father Family Medical History: CVA/TIA, Myocardial Infarction ([place]) Mother Family Medical History: Cancer Additional Family Medical History / Comment(s): Breast/ lymph nodes cancer Medications and Allergies Home Medications Medication Instructions Recorded Confirmed Type Enoxaparin [Lovenox] 80 mg SQ Q12H 11/23/16 11/23/16 History HYDROcodone/APAP 5-325MG [[place] 1 tab PO Q12H PRN 11/23/16 11/23/16 History 5-325] Zolpidem [Ambien] 10 mg PO HS 11/23/16 11/23/16 History Allergies Allergy/AdvReac Type Severity Reaction Status Date / Time No Known Allergies Allergy Verified 11/23/16 08:29 Physical Exam Vitals: Vital Signs Temp Pulse Resp BP Pulse Ox 11/24/16 08:00 97.2 F L 66 16 108/60 95 11/24/16 07:15 96 11/24/16 04:00 98.9 F 67 16 125/77 95 11/23/16 23:37 97.9 F 71 16 117/73 96 11/23/16 20:41 95 11/23/16 19:56 97.9 F 78 16 127/89 97 11/23/16 15:52 77 16 133/84 96 11/23/16 11:47 76 17 130/71 97 Intake and Output 11/23/16 11/24/16 11/24/16 22:59 06:59 14:59 Intake Total 240 Output Total 1200 500 Balance -960 -500 Intake: Oral 240 Output: Urine 1200 500 Other: Voiding Method Toilet # Bowel Movements 0 Weight 76.4 kg - Constitutional General appearance: average body habitus, no acute distress - EENT Eyes: EOMI, PERRLA ENT: no hard of hearing - Neck Neck: no lymphadenopathy - Respiratory Respiratory: right: CTA, left: diminished - Cardiovascular Rhythm: regular - Gastrointestinal General gastrointestinal: no distended, no tenderness - Integumentary Integumentary: no calor, no flushed - Neurologic Neurologic: CNII-XII intact - Musculoskeletal Musculoskeletal: strength equal bilaterally - Psychiatric Psychiatric: A&O x's 3, appropriate affect Results CBC & Chem 7: 11/23/16 00:56 11/23/16 00:56 Labs: Abnormal Lab Results - Last 24 Hours (Table) 11/23/16 11/24/16 Range/Units 13:13 07:01 Total Creatine Kinase 53 L (55-170) U/L Troponin I 0.153 H* (0.000-0.034) ng/mL LDL Cholesterol, Calc 112 H (0-99) mg/dL Microbiology - Last 24 Hours (Table) 11/23/16 03:32 Blood Culture - Preliminary Blood No Growth after [address] scan - chest: report reviewed, image reviewed Assessment and Plan Plan: 1. Squamous cell carcinoma of the lung, recurrent: The patient presents with chest pain, worsening dyspnea on exertion, and new diagnosed A. fib with RVR. The patient appears to have a large filling defect in the left main pulmonary artery, which has been present since August but has progressed in size. My feeling is this likely represents tumor thrombus considering his adjacent disease. Considering the patient is markedly more symptomatic at this time, my feeling is that this is due to his left lung atelectasis. When reviewing his CT scan from November 03, the left lung appear to be patent, and his CT scan from November 23 reveals near complete collapse. I explained to the patient, that I would recommend a course of palliative radiotherapy with the hope of reopening this lung. My hope is that this would help the patient's dyspnea on exertion. I explained to the patient, that is immunotherapy treatment was unlikely to cause substantial response as to open the lung independently. Considering the patient had outside radiotherapy, I would need to collect these records. I explained to the patient, that reirradiation would increase his risk of radiation pneumonitis, fibrosis, and low risk of potentially grade 3-5 side effects. I explained that potential side effects include, but are not limited to; fatigue, skin erythema, cough, dyspnea, dysphagia, odynophagia, chest wall pain, radiation pneumonitis, fibrosis, fistula formation. The patient is considering if he is interested in undergoing radiotherapy at this time. I will try to have the patient undergo CT simulation today. Time with Patient: Greater than 30
--- NOTE | 2016-11-24 12:06 | P.PN ---
Subjective Principal diagnosis: Acute pulmonary embolism, and left lung collapse secondary to bronchogenic carcinoma. This is a 56-year-old white male with history of stage IV bronchogenic carcinoma , recently completed chemotherapy, and anticipating to start immunotherapy. Patient was recently admitted to with chest discomfort and shortness of breath as well as cough. His CT of the chest showed almost near complete opacification of the left lung, and there was evidence of a large pulmonary thrombus in the left pulmonary artery mostly involving the pulmonary artery to the left lower lobe. The differential diagnoses included pulmonary embolism or filling defect from tumor embolism or tumor around the left pulmonary artery of the left lower lobe. I reviewed the CT of the chest myself , and I agree that there is a large eccentric filling defect within the left pulmonary artery and occlusion of the left lower lobe pulmonary artery very much similar to previous CT angiogram of the chest. Of course the differential diagnoses includes true pulmonary embolism or metastatic tumor involving the left pulmonary artery. Considering the patient's atrial fibrillation and his symptoms related to atrial fibrillation, I would suspect that this is true pulmonary embolism unless proven otherwise. Patient was placed initially on Lovenox, and now he is on Xarelto. I have discussed this patient earlier with Dr. Charlton, and he was wondering whether bronchoscopy could be done on this patient. At this point I feel it is extremely high risk to do bronchoscopy knowing in fact that we may be dealing with extensive pulmonary embolism and I would definitely be reluctant to hold any antiplatelet ventilation therapy at this point. Patient was seen by cardiology, and being treated for his new onset paroxysmal atrial fibrillation with RVR. Reevaluated today on 11/24/2016, patient is feeling a bit better, continues to have some left-sided chest pain. And I believe the pain is secondary to left lung collapse and pulmonary embolism. Patient is now on Xarelto, he was seen by radiation oncology, and he would likely start radiation treatment tomorrow to hopefully expand the left lung. In the meantime the patient will remain on treatment with anti-coagulation therapy for thromboembolic disease and pulmonary embolism. Objective - Vital Signs Vital signs: Vital Signs Temp 97.2 F L 11/24/16 08:00 Pulse 66 11/24/16 08:00 Resp 16 11/24/16 08:00 BP 108/60 11/24/16 08:00 Pulse Ox 95 11/24/16 08:00 Intake & Output 11/23/16 11/24/16 11/24/16 18:59 06:59 18:59 Intake Total 505 Output Total 800 900 Balance -295 -900 Weight 76.4 kg Intake: Intake, IV Titration 25 Amount Diltiazem 125 mg In 25 Sodium Chloride 0.9% 100 ml @ 5 MG/HR 5 mls/hr IV .Q24H ONE Rx#:[id number] Oral 480 Output: Urine 800 900 Other: Voiding Method Toilet # Bowel Movements 0 - Exam General appearance: alert, not in any form of distress, patient seems comfortable. Head exam: Present: atraumatic, normocephalic Eye exam: Present: normal appearance. Absent: scleral icterus, conjunctival injection ENT exam: Present: normal oropharynx Respiratory exam: Present: wheezes, decreased breath sounds (Left base). Absent : respiratory distress, rales, rhonchi, stridor, chest wall tenderness Cardiovascular Exam: Present: tachycardia (Rate approximately 152 at my exam), irregular rhythm, systolic murmur (Grade 1/6 systolic ejection murmur). Absent : diastolic murmur, rubs, gallop GI/Abdominal exam: Present: soft, normal bowel sounds, hernia (There does appear to be a small umbilical hernia without peritoneal signs. There is minimal tenderness at the hernia. The patient states he did have ultrasound of this while he was in the hospital). Absent: distended, tenderness, guarding, rebound Extremities exam: Present: normal inspection, normal capillary refill. Absent: pedal edema, calf tenderness Back exam: Present: normal inspection. Absent: CVA tenderness (R), CVA tenderness (L) Neurological exam: Present: alert Skin exam: Present: warm, dry, intact, normal color. Absent: rash - Labs CBC & Chem 7: 11/23/16 00:56 11/23/16 00:56 Labs: Abnormal Lab Results - Last 24 Hours (Table) 11/23/16 11/24/16 Range/Units 13:13 07:01 Total Creatine Kinase 53 L (55-170) U/L Troponin I 0.153 H* (0.000-0.034) ng/mL LDL Cholesterol, Calc 112 H (0-99) mg/dL Microbiology - Last 24 Hours (Table) 11/23/16 03:32 Blood Culture - Preliminary Blood No Growth after 24 hours Assessment and Plan Plan: Impression: 1 acute atrial fibrillation with RVR, most likely triggered by his underlying pulmonary disease and strongly suspect thromboembolic disease involving the left lung. 2 stage IV bronchogenic carcinoma status post chemotherapy, patient is to be receiving immunotherapy in the near future. 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 4 suspect some component of COPD Recommendation: Agree with present treatment plan utilizing Xarelto, at this point, it is quite risky to hold anticoagulation therapy and perform bronchoscopy however this could be done on outpatient basis when the patient stabilizes in the next couple of weeks. Patient will be cleared for discharge planning, he is to follow-up with radiation oncology for radiation treatment and hopefully expand the left lung. Time with Patient: Less than 30
--- NOTE | 2016-11-24 12:59 | P.PN ---
Subjective This is a pleasant 56-year-old gentleman with history of lung CA, recently completed chemotherapy was anticipating starting immunotherapy. Was recently hospitalized at [facility] after developing chest discomfort, shortness of breath and a cough. He was found to be positive for a large P and was started on Lovenox. He was discharged yesterday was feeling fairly well and woke suddenly from a sleep with complaints of chest discomfort and racing heartbeat. Upon presentation to the emergency department, patient was found to be in atrial fibrillation with rapid ventricular response. CTA of the chest read demonstrated large filling defect within the left pulmonary artery with a portion of the aerated left lung demonstrating opacity and dilated airways and/ or cavitary changes in the left lower lobe which may represent combination of atelectasis and/or infiltrate. Chest x-ray showed near complete opacification of the left hemithorax with evidence of volume loss and mid leftward mediastinal shift and a atelectasis and/or infiltrate with underlying mass, left pleural effusion not excluded. His troponin also came in to be elevated with the first at 0.021, 0.208, and 0.153. Patient was admitted started on Cardizem drip and converted to sinus rhythm. He was started on Metoprolol tartrate 25 mg BID and Xarelto 15mg BID. Upon examination, patient is resting comfortably in bed. He says he's feeling quite a bit better from yesterday. He does continue to have some chest discomfort with coughing and if he exerts himself with breathing. Objective - Vital Signs Vital signs: Vital Signs Temp 97.2 F L 11/24/16 08:00 Pulse 66 11/24/16 08:00 Resp 16 11/24/16 08:00 BP 108/60 11/24/16 08:00 Pulse Ox 95 11/24/16 08:00 Intake & Output 11/23/16 11/24/16 11/24/16 18:59 06:59 18:59 Intake Total 505 Output Total 800 900 Balance -295 -900 Weight 76.4 kg Intake: Intake, IV Titration 25 Amount Diltiazem 125 mg In 25 Sodium Chloride 0.9% 100 ml @ 5 MG/HR 5 mls/hr IV .Q24H ONE Rx#:[id number] Oral 480 Output: Urine 800 900 Other: Voiding Method Toilet # Bowel Movements 0 - Exam PHYSICAL EXAMINATION: HEENT: Head is atraumatic, normocephalic. Pupils equal, round. Neck is supple. There is no elevated jugular venous pressure. HEART EXAMINATION: Heart sounds regular, S1 and S2 normal. No murmur or gallop heard. CHEST EXAMINATION: Lungs reveal diminished air entry on the left. Chest discomfort with deep breathing. ABDOMEN: Soft, nontender. Bowel sounds are heard. No organomegaly noted. EXTREMITIES: 2+ peripheral pulses with no evidence of peripheral edema and no calf tenderness noted. NEUROLOGIC patient is awake, alert and oriented x3. - Labs CBC & Chem 7: 11/23/16 00:56 11/23/16 00:56 Labs: Abnormal Lab Results - Last 24 Hours (Table) 11/23/16 11/24/16 Range/Units 13:13 07:01 Total Creatine Kinase 53 L (55-170) U/L Troponin I 0.153 H* (0.000-0.034) ng/mL LDL Cholesterol, Calc 112 H (0-99) mg/dL Microbiology - Last 24 Hours (Table) 11/23/16 03:32 Blood Culture - Preliminary Blood No Growth after 24 hours Assessment and Plan Plan: Assessment and plan #1 lung CA #2 left pulmonary artery PE #3 new onset paroxysmal atrial fibrillation with rapid ventricular response #4 elevated troponins, consistent with non-ST elevated IL From cardiology perspective, continue Xarelto 15mg BID for 21 days then 20mg daily. Continue metoprolol tartrate 25 mg by mouth twice a day. He may be discharged home today from her perspective. He'll follow up with Dr. Chamberlain as an outpatient. DIRECTOR DIGITAL ANALYTICS note has been reviewed, I agree with a documented findings and plan of care. Patient was seen and examined.
[2016-11-24 13:10] VITALS: BP 119/51; PULSE 67; RESP 18; TEMP 97
--- NOTE | 2016-11-24 13:40 | P.DS ---
Providers Date of admission: 11/23/16 03:12 Attending physician: Doris Ruiz Consults: 11/23/16 03:08 Consult Physician Routine Consulting Provider: Narda Murillo Consult Reason/Comments: Lung cancer patient with PE and pleural effusion. Do you want consulting provider notified?: Yes Consult Physician Routine Consulting Provider: Kirk Loyola Consult Reason/Comments: New onset atrial fibrillation Do you want consulting provider notified?: Yes Consult Physician Routine Consulting Provider: Anand Charlton Consult Reason/Comments: Lung cancer patient Do you want consulting provider notified?: Yes 11/23/16 12:40 Consult Physician Routine Consulting Provider: Leland Rowley Consult Reason/Comments: Progressive lung ca, obstructive atelectasis. Eval for palliative RT Do you want consulting provider notified?: Yes Primary care physician: Anand Charlton Hospital Course: Patient is a 56-year-old male with a known history of lung cancer status post chemotherapy 3 weeks ago and also recently diagnosed with pulmonary embolism 2 days ago at [facility] came to the hospital with complaints of heart pounding fast and short of breath and cough since yesterday. Patient was found to have atrial fibrillation and was started on Cardizem drip. Patient was also started on heparin IV for pulmonary embolism and it fibrillation. Patient says that his chest discomfort is better and denied any other complaints at this time. CTA of the chest read demonstrated large filling defect within the left pulmonary artery with a portion of the aerated left lung demonstrating opacity and dilated airways and/or cavitary changes in the left lower lobe which may represent combination of atelectasis and/or infiltrate. Chest x-ray showed near complete opacification of the left hemithorax with evidence of volume loss and mid leftward mediastinal shift and a atelectasis and /or infiltrate with underlying mass, left pleural effusion not excluded. His troponin also came in to be elevated with the first at 0.021 and the second at 0.208 and 0.153. 11/24/2016 Patient is clinically doing well, patient was cleared for discharge. Patient will follow Dr. Charlton and radiation oncology as an outpatient starting radiation therapy from tomorrow. PHYSICAL EXAMINATION: GENERAL: The patient is alert and oriented x3, not in any acute distress. Well developed, well nourished. HEENT: Pupils are round and equally reacting to light. EOMI. No scleral icterus. No conjunctival pallor. Normocephalic, atraumatic. No pharyngeal erythema. No thyromegaly. CARDIOVASCULAR: S1 and S2 present. No murmurs, rubs, or gallops. PULMONARY: Chest is clear to auscultation, no wheezing or crackles. ABDOMEN: Soft, nontender, nondistended, normoactive bowel sounds. No palpable organomegaly. MUSCULOSKELETAL: No joint swelling or deformity. EXTREMITIES: No cyanosis, clubbing, or pedal edema. NEUROLOGICAL: Gross neurological examination did not reveal any focal deficits. SKIN: No rashes. #1 new onset atrial fibrillation with a rapid regular rate. Likely triggered by thromboembolism in the lung #2 elevated troponin level. 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 History of smoking Patient Condition at Discharge: Serious Plan - Discharge Summary New Discharge Prescriptions: New Metoprolol Tartrate [Lopressor] 25 mg PO BID #60 tab Rivaroxaban [Xarelto] 15 mg PO BID-W/MEALS #42 tab Continue HYDROcodone/APAP 5-325MG [[place] 5-325] 1 tab PO Q12H PRN #30 PRN Reason: Pain Discontinued Enoxaparin [Lovenox] 80 mg SQ Q12H No Action Zolpidem [Ambien] 10 mg PO HS Discharge Medication List Zolpidem [Ambien] 10 mg PO HS 11/23/16 [History] HYDROcodone/APAP 5-325MG [[place] 5-325] 1 tab PO Q12H PRN #30 11/24/16 [Rx] Metoprolol Tartrate [Lopressor] 25 mg PO BID #60 tab 11/24/16 [Rx] Rivaroxaban [Xarelto] 15 mg PO BID-W/MEALS #42 tab 11/24/16 [Rx] Follow up Appointment(s)/Referral(s): Anand Charlton MD [Primary Care Provider] - 1-2 days (office is closed,please call for appointment date and time) Cleveland Chamberlain MD [STAFF PHYSICIAN] - 12/24/16 4:00 pm () Leland Rowley MD [STAFF PHYSICIAN] - 11/25/16 9:30 am () Patient Instructions/Handouts: Atrial Fibrillation (DC) Activity/Diet/Wound Care/Special Instructions: - Wednesday and appt's need to be in the afternoon. All other days need to be morning appointments. He also needs to reschedule teaching session with Ramya Salas FINANCIAL ASSISTANCE ADVISOR about new chemo treatment. I have already given him information about afib, xarelto and safe use of anticoagulants. Discharge Disposition: HOME SELF-CARE
== END 2016-11-24 13:51 | disposition home or self-care (01) | DRG 280 ==
LOC: EC 00:37 → 6SEL 03:12
PROVIDERS: ADMIT Internal Medicine; ATTEND Internal Medicine
DX: I21.4 Non-ST elevation (NSTEMI) myocardial infarction (principal); I26.99 Other pulmonary embolism without acute cor pulmonale; C34.32 Malignant neoplasm of lower lobe, left bronchus or lung; J90 Pleural effusion, not elsewhere classified; J44.9 Chronic obstructive pulmonary disease, unspecified; J98.11 Atelectasis; I48.0 Paroxysmal atrial fibrillation; I51.7 Cardiomegaly; K42.9 Umbilical hernia without obstruction or gangrene; R53.1 Weakness; Z86.19 Personal history of other infectious and parasitic diseases; Z92.3 Personal history of irradiation; Z92.21 Personal history of antineoplastic chemotherapy; Z82.49 Family history of ischemic heart disease and other diseases of the circulatory system; Z87.891 Personal history of nicotine dependence; Z80.3 Family history of malignant neoplasm of breast; Z80.7 Family history of other malignant neoplasms of lymphoid, hematopoietic and related tissues; Z82.3 Family history of stroke; Z87.09 Personal history of other diseases of the respiratory system; Z79.01 Long term (current) use of anticoagulants; Z79.891 Long term (current) use of opiate analgesic; Z79.899 Other long term (current) drug therapy
CPT/HCPCS: 36415; 71010; 71275; 80053; 80061; 82550; 82553; 83605; 83735; 83880; 84484; 85025; 85610; 85730; 87040; 93005; 94760; 96365; 96366; 96376; 99291

== ENCOUNTER 2017-02-06 21:29 | Inpatient (IN) | payer OTHER ==
[2017-02-06] MEDS ORDERED: HYDROmorphone 2 MG/ML 1 ML SYRINGE IVP STA ×2 (21:56→22:42)
--- NOTE | 2017-02-06 22:08 | ED ---
General Adult HPI - General Chief complaint: Chest Pain Stated complaint: chest pain Time Seen by Provider: 02/06/17 21:35 Source: patient, family, RN notes reviewed, old records reviewed Mode of arrival: wheelchair Limitations: no limitations - History of Present Illness Initial comments: 56-year-old male with history of metastatic lung cancer currently receiving radiation presents for evaluation of abdominal pain and chest pain. Patient was recently admitted with intractable pain. He was given an increase in his pain medication for home. He states that these medications worked for several days, over the past 2 days he has had not been controlling his pain. He is complaining of abdominal pain and chest pain. Patient has been receiving radiation of brain metastases. Most recently 2 days ago. He is currently not on chemotherapy. No history of fever. No cough. Patient has not been eating well, decreased appetite. - Related Data Home Medications Medication Instructions Recorded Confirmed Zolpidem [Ambien] 10 mg PO HS 11/23/16 02/06/17 Midodrine [ProAmatine] 5 mg PO TID 01/17/17 02/06/17 Prochlorperazine [Compazine] 10 mg PO Q6H PRN 01/17/17 02/06/17 Rivaroxaban [Xarelto] 20 mg PO DAILY@1200 01/17/17 02/06/17 HYDROcodone/APAP 5-325MG [[place] 1 tab PO Q6H PRN 01/31/17 02/06/17 5-325] Previous Rx's Medication Instructions Recorded Dexamethasone [Hexadrol] 4 mg PO QID #120 tablet 01/26/17 Docusate [Colace] 100 mg PO BID #60 capsule 02/02/17 HYDROmorphone [Dilaudid] 2 mg PO Q2HR PRN #30 tab 02/02/17 Lactulose 20 gm PO TID PRN #480 ml 02/02/17 Metoprolol Tartrate [Lopressor] 12.5 mg PO BID #60 tab 02/02/17 Morphine Sulfate ER [Ms Contin] 30 mg PO Q8HR #42 tablet 02/02/17 Acetaminophen Tab [Tylenol] 650 mg PO Q6HR PRN tab 02/03/17 Allergies Allergy/AdvReac Type Severity Reaction Status Date / Time No Known Allergies Allergy Verified 02/06/17 21:33 Review of Systems ROS Statement: Those systems with pertinent positive or pertinent negative responses have been documented in the HPI. ROS Other: All systems not noted in ROS Statement are negative. Past Medical History Past Medical History: Atrial Fibrillation, Cancer Additional Past Medical History / Comment(s): Pt recently admitted 01/17/17 with hypercalcemia, abdominal pain. 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 History of Any Multi-Drug Resistant Organisms: None Reported Past Surgical History: No Surgical Hx Reported Additional Past Surgical History / Comment(s): Bronchoscopies/bx Past Anesthesia/Blood Transfusion Reactions: No Reported Reaction Past Psychological History: No Psychological Hx Reported Smoking Status: Former smoker Past Alcohol Use History: None Reported Past Drug Use History: None Reported - Past Family History Father Family Medical History: CVA/TIA, Myocardial Infarction ([place]) Mother Family Medical History: Cancer Additional Family Medical History / Comment(s): Breast/ lymph nodes cancer General Exam Limitations: no limitations General appearance: alert, lethargic, cachectic Head exam: Present: other (Erythematous lesion in the right parietal scalp) Eye exam: Present: normal appearance, PERRL ENT exam: Present: mucous membranes dry Respiratory exam: Present: normal lung sounds bilaterally. Absent: respiratory distress Cardiovascular Exam: Present: regular rate, normal rhythm GI/Abdominal exam: Present: tenderness (Generalized tenderness to palpation), guarding (Voluntary guarding) Extremities exam: Present: normal inspection, normal capillary refill. Absent: pedal edema Neurological exam: Present: alert, oriented X3, CN II-XII intact. Absent: motor sensory deficit Psychiatric exam: Present: normal affect, normal mood Skin exam: Present: warm, dry, intact. Absent: cyanosis, diaphoretic Course Vital Signs 02/06/17 02/06/17 02/06/17 21:30 22:11 22:20 Temperature 97 F L Pulse Rate 68 56 L Respiratory 18 20 18 Rate Blood Pressure 109/68 126/64 O2 Sat by Pulse 96 100 Oximetry 02/06/17 02/06/17 22:50 23:26 Temperature Pulse Rate 66 52 L Respiratory 18 18 Rate Blood Pressure 120/64 123/67 O2 Sat by Pulse 100 100 Oximetry EKG Findings - EKG Comments: EKG Findings:: EKG shows sinus bradycardia, ventricular rate 56, SD interval 152 , QRS duration 100, QTC 409, no signs of ischemia Medical Decision Making - Medical Decision Making 56-year-old male history of metastatic lung cancer present with worsening pain. Patient states his pain is unchanged in character or location, worsening in severity over the past several days. Patient is given IV pain medication and laboratory studies are obtained. White blood cell count 18.6 which is predominantly neutrophils. Patient has had elevated white blood cell count in the previous weeks. He is afebrile heart rate blood pressure stable. Presentation is not concerning for infection at this time, repeat laboratory studies will be obtained in the morning. Electrolytes are significant only for elevated magnesium, normal sodium. EKG nonischemic. Patient's abdomen is tender,no vomiting, he is tolerating oral liquids in the emergency department. Patient receives multiple doses of IV pain medication while in the emergency department. He will be placed in observation for continued IV pain medication. Repeat laboratory studies for evaluation of elevated white blood cell count. Monitor for signs of infection. - Lab Data Result diagrams: 02/06/17 22:25 02/06/17 22:25 Lab Results 02/06/17 02/06/17 02/06/17 Range/Units 22:25 22:25 22:25 WBC 18.6 H (3.8-10.6) k/uL RBC 4.57 (4.30-5.90) m/uL Hgb 12.1 L (13.0-17.5) gm/dL Hct 39.5 (39.0-53.0) % MCV 86.5 (80.0-100.0) fL MCH 26.6 (25.0-35.0) pg MCHC 30.7 L (31.0-37.0) g/dL RDW 16.6 H (11.5-15.5) % Plt Count 487 H (150-450) k/uL Neutrophils % (Manual) 95 % Lymphocytes % (Manual) 1 % Monocytes % (Manual) 4 % Neutrophils # (Manual) 17.67 H (1.3-7.7) k/uL Lymphocytes # (Manual) 0.19 L (1.0-4.8) k/uL Monocytes # (Manual) 0.74 (0-1.0) k/uL Nucleated RBCs 0 (0-0) /100 WBC Manual Slide Review Performed Hypochromasia Slight Anisocytosis Slight PT 12.6 H (9.0-12.0) sec INR 1.3 H (<1.2) APTT 24.3 (22.0-30.0) sec Sodium 137 (137-145) mmol/L Potassium 3.9 (3.5-5.1) mmol/L Chloride 97 L (98-107) mmol/L Carbon Dioxide 29 (22-30) mmol/L Anion Gap 11 mmol/L BUN 27 H (9-20) mg/dL Creatinine 0.70 (0.66-1.25) mg/dL Est GFR (MDRD) Af Amer >60 (>60 ml/min/1.73 sqM) Est GFR (MDRD) Non-Af >60 (>60 ml/min/1.73 sqM) Glucose 102 H (74-99) mg/dL Calcium 10.9 H (8.4-10.2) mg/dL Magnesium 2.7 H (1.6-2.3) mg/dL Total Bilirubin 1.1 (0.2-1.3) mg/dL AST 58 (17-59) U/L ALT 87 H (21-72) U/L Alkaline Phosphatase 371 H (38-126) U/L Total Creatine Kinase (55-170) U/L CK-MB (CK-2) (0.0-2.4) ng/mL CK-MB (CK-2) Rel Index Troponin I (0.000-0.034) ng/mL Total Protein 7.1 (6.3-8.2) g/dL Albumin 3.9 (3.5-5.0) g/dL 02/06/17 Range/Units 22:25 WBC (3.8-10.6) k/uL RBC (4.30-5.90) m/uL Hgb (13.0-17.5) gm/dL Hct (39.0-53.0) % MCV (80.0-100.0) fL MCH (25.0-35.0) pg MCHC (31.0-37.0) g/dL RDW (11.5-15.5) % Plt Count (150-450) k/uL Neutrophils % (Manual) % Lymphocytes % (Manual) % Monocytes % (Manual) % Neutrophils # (Manual) (1.3-7.7) k/uL Lymphocytes # (Manual) (1.0-4.8) k/uL Monocytes # (Manual) (0-1.0) k/uL Nucleated RBCs (0-0) /100 WBC Manual Slide Review Hypochromasia Anisocytosis PT (9.0-12.0) sec INR (<1.2) APTT (22.0-30.0) sec Sodium (137-145) mmol/L Potassium (3.5-5.1) mmol/L Chloride (98-107) mmol/L Carbon Dioxide (22-30) mmol/L Anion Gap mmol/L BUN (9-20) mg/dL Creatinine (0.66-1.25) mg/dL Est GFR (MDRD) Af Amer (>60 ml/min/1.73 sqM) Est GFR (MDRD) Non-Af (>60 ml/min/1.73 sqM) Glucose (74-99) mg/dL Calcium (8.4-10.2) mg/dL Magnesium (1.6-2.3) mg/dL Total Bilirubin (0.2-1.3) mg/dL AST (17-59) U/L ALT (21-72) U/L Alkaline Phosphatase (38-126) U/L Total Creatine Kinase 49 L (55-170) U/L CK-MB (CK-2) 0.6 (0.0-2.4) ng/mL CK-MB (CK-2) Rel Index 1.2 Troponin I <0.012 (0.000-0.034) ng/mL Total Protein (6.3-8.2) g/dL Albumin (3.5-5.0) g/dL Disposition Clinical Impression: Lung cancer metastatic to brain, Intractable abdominal pain Disposition: ADMITTED IP TO THIS [facility] Condition: Stable Referrals: Nonstaff,Physician [Primary Care Provider] - 1-2 days Decision to Admit Reason: Admit from EC Decision Date: 02/06/17 Decision Time: 23:41
[2017-02-06 22:47] LABS: Anisocytosis Slight; HCT 39.5 % (39.0-53.0); HGB 12.1 gm/dL (13.0-17.5); Hypochromasia Slight; MCH 26.6 pg (25.0-35.0); MCHC 30.7 g/dL (31.0-37.0); MCV 86.5 fL (80.0-100.0); Mean Platelet Volume 7.3; Platelet Count 487 k/uL (150-450); RBC 4.57 m/uL (4.30-5.90); RDW 16.6 % (11.5-15.5); WBC 18.6 k/uL (3.8-10.6)
[2017-02-06 22:49] LABS: INR 1.3 (<1.2); Partial Thromboplastin Time 24.3 sec (22.0-30.0); Prothrombin Time 12.6 sec (9.0-12.0)
[2017-02-06 22:51] LABS: ALT 87 U/L (21-72); AST 58 U/L (17-59); Albumin 3.9 g/dL (3.5-5.0); Alkaline Phosphatase 371 U/L (38-126); Anion Gap 11 mmol/L; Blood Urea Nitrogen 27 mg/dL (9-20); Calcium 10.9 mg/dL (8.4-10.2); Carbon Dioxide 29 mmol/L (22-30); Chloride 97 mmol/L (98-107); Glucose 102 mg/dL (74-99); Magnesium 2.7 mg/dL (1.6-2.3); Potassium 3.9 mmol/L (3.5-5.1); Sodium 137 mmol/L (137-145); Total Bilirubin 1.1 mg/dL (0.2-1.3); Total Protein 7.1 g/dL (6.3-8.2)
[2017-02-06 22:55] LABS: Creatine Kinase 49 U/L (55-170)
[2017-02-06 23:08] LABS: Creatine Kinase MB 0.6 ng/mL (0.0-2.4); Troponin I <0.012 ng/mL (0.000-0.034)
[2017-02-06] MEDS ORDERED: SODIUM CHLORIDE 0.9% 1,000 ML IV ONE (23:16)
[2017-02-06 23:18] LABS: Lymphocytes # (M) 0.19 k/uL (1.0-4.8); Monocytes # (M) 0.74 k/uL (0-1.0); Neutrophils # (M) 17.67 k/uL (1.3-7.7); Neutrophils % (M) 95 %; Nucleated Red Blood Cells 0 /100 WBC (0-0); Total Cells Counted 100
[2017-02-06] MEDS: SODIUM CHLORIDE 0.9% 1,000 ML IV SCH (23:26)
[2017-02-06] MEDS ORDERED: HYDROcodone/APAP 5-325MG 1 EACH TAB PO PRN (23:41)
[2017-02-06] MEDS ORDERED: LORazepam 2 MG/ML INJ IV PRN (23:41)
[2017-02-06] MEDS ORDERED: ONDANSETRON 4 MG/2 ML VIAL IVP PRN (23:41)
[2017-02-06] MEDS ORDERED: NALOXONE 0.4 MG/ML 1 ML VIAL IV PRN (23:41)
[2017-02-07 00:43] VITALS: BMI 18.7
[2017-02-07] MEDS: HYDROmorphone 4 MG/ML 1 ML SYRINGE IVP PRN ×6 (02:12→20:54)
[2017-02-07 06:06] LABS: Anisocytosis Slight; Basophils % (A) 0 %; Eosinophils % (A) 0 %; HCT 36.7 % (39.0-53.0); HGB 10.9 gm/dL (13.0-17.5); Hypochromasia Moderate; Lymphocytes # (A) 0.2 k/uL (1.0-4.8); Lymphocytes % (A) 2 %; MCH 26.5 pg (25.0-35.0); MCHC 29.8 g/dL (31.0-37.0); Mean Platelet Volume 7.3; Monocytes % (A) 7 %; Neutrophils # (A) 13.7 k/uL (1.3-7.7); Neutrophils % (A) 91 %; Platelet Count 410 k/uL (150-450); RBC 4.12 m/uL (4.30-5.90); RDW 17.1 % (11.5-15.5)
[2017-02-07 06:17] LABS: ALT 82 U/L (21-72); AST 48 U/L (17-59); Albumin 3.2 g/dL (3.5-5.0); Alkaline Phosphatase 315 U/L (38-126); Anion Gap 6 mmol/L; Blood Urea Nitrogen 24 mg/dL (9-20); Calcium 9.9 mg/dL (8.4-10.2); Carbon Dioxide 30 mmol/L (22-30); Chloride 101 mmol/L (98-107); Glucose 84 mg/dL (74-99); Potassium 3.5 mmol/L (3.5-5.1); Sodium 137 mmol/L (137-145); Total Bilirubin 0.9 mg/dL (0.2-1.3); Total Protein 5.9 g/dL (6.3-8.2)
[2017-02-07] MEDS ORDERED: ACETAMINOPHEN TAB 325 MG TAB PO PRN (11:21)
[2017-02-07] MEDS ORDERED: LACTULOSE 20 GM/30 ML CUP PO PRN (11:21)
[2017-02-07] MEDS ORDERED: RX INFO: IV CONTRAST WAS GIVEN 1 EACH MISC MISCELLANE PRN (11:34)
[2017-02-07] MEDS: SODIUM CHLORIDE 0.9% 1,000 ML IV SCH (12:34)
[2017-02-07] MEDS: MIDODRINE 5 MG TAB PO SCH ×2 (12:40→17:55)
--- NOTE | 2017-02-07 13:44 | P.HPIM ---
History of Present Illness 56-year-old male with history of metastatic lung cancer currently receiving radiation presents for evaluation of abdominal pain and chest pain. Patient was recently admitted with intractable pain, 10 x 10 diffusely in the abdomen. He was given an increase in his pain medication for home. He states that these medications worked for several days, over the past 2 days he has had not been controlling his pain. He is complaining of abdominal pain and chest pain. Patient has been receiving radiation of brain metastases. Most recently 2 days ago. He is currently not on chemotherapy. No history of fever. No cough. Patient has not been eating well, decreased appetite. Patient has metastatic disease because because of which we're obtaining CAT scan of the head patient is also bit confused patient was started on Decadron patient is presently on Dilaudid will start him on oral pain medications. Anticoagulation is on hold. Review of Systems REVIEW OF SYSTEMS: CONSTITUTIONAL: No fever, no malaise, no fatigue. HEENT: No recent visual problems or hearing problems. Denied any sore throat. CARDIOVASCULAR: No chest pain, orthopnea, PND, no palpitations, no syncope. PULMONARY: No shortness of breath, no cough, no hemoptysis. GASTROINTESTINAL: No diarrhea, no nausea, no vomiting, NEUROLOGICAL: No headaches, no weakness, no numbness. HEMATOLOGICAL: Denies any bleeding or petechiae. GENITOURINARY: Denies any burning micturition, frequency, or urgency. MUSCULOSKELETAL/RHEUMATOLOGICAL: Denies any joint pain, swelling, or any muscle pain. ENDOCRINE: Denies any polyuria or polydipsia. The rest of the 14-point review of systems is negative. Past Medical History Past Medical History: Atrial Fibrillation, Cancer Additional Past Medical History / Comment(s): Pt recently admitted 01/17/17 with hypercalcemia, abdominal pain. 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 History of Any Multi-Drug Resistant Organisms: None Reported Past Surgical History: No Surgical Hx Reported Additional Past Surgical History / Comment(s): Bronchoscopies/bx Past Anesthesia/Blood Transfusion Reactions: No Reported Reaction Past Psychological History: No Psychological Hx Reported Additional Psychological History / Comment(s): Pt resides with his brother and sister in law. He is independent. Smoking Status: Former smoker Past Alcohol Use History: None Reported Additional Past Alcohol Use History / Comment(s): Pt states he quit smoking in 2014. He has not drank alcohol in quite a while. Past Drug Use History: None Reported - Past Family History Father Family Medical History: CVA/TIA, Myocardial Infarction ([place]) Mother Family Medical History: Cancer Additional Family Medical History / Comment(s): Breast/ lymph nodes cancer Medications and Allergies Home Medications Medication Instructions Recorded Confirmed Type Zolpidem [Ambien] 10 mg PO HS 11/23/16 02/07/17 History Midodrine [ProAmatine] 5 mg PO TID 01/17/17 02/07/17 History Prochlorperazine [Compazine] 10 mg PO Q6H PRN 01/17/17 02/07/17 History Rivaroxaban [Xarelto] 20 mg PO DAILY@1200 01/17/17 02/07/17 History Dexamethasone [Hexadrol] 4 mg PO QID #120 tablet 01/26/17 02/07/17 Rx HYDROcodone/APAP 5-325MG [[place] 1 tab PO Q6H PRN 01/31/17 02/07/17 History 5-325] Docusate [Colace] 100 mg PO BID #60 capsule 02/02/17 02/07/17 Rx HYDROmorphone [Dilaudid] 2 mg PO Q2HR PRN #30 tab 02/02/17 02/07/17 Rx Lactulose 20 gm PO TID PRN #480 ml 02/02/17 02/07/17 Rx Metoprolol Tartrate [Lopressor] 12.5 mg PO BID #60 tab 02/02/17 02/07/17 Rx Morphine Sulfate ER [Ms Contin] 30 mg PO Q8HR #42 tablet 02/02/17 02/07/17 Rx Acetaminophen Tab [Tylenol] 650 mg PO Q6HR PRN tab 02/03/17 02/07/17 Rx Allergies Allergy/AdvReac Type Severity Reaction Status Date / Time No Known Allergies Allergy Verified 02/07/17 08:31 Physical Exam Vitals: Vital Signs Temp Pulse Pulse Resp BP BP Pulse Ox 02/07/17 08:35 95 02/07/17 07:00 97.4 F L 71 18 118/70 96 02/07/17 00:30 97.9 F 52 L 16 149/65 100 02/06/17 23:58 97.1 F L 54 L 20 143/67 100 02/06/17 23:26 52 L 18 123/67 100 02/06/17 22:50 66 18 120/64 100 02/06/17 22:20 56 L 18 126/64 100 02/06/17 22:11 20 02/06/17 21:30 97 F L 68 18 109/68 96 Intake and Output 02/06/17 02/07/17 02/07/17 22:59 06:59 14:59 Intake Total 500 600 Balance 500 600 Intake: IV 600 Sodium Chloride 0.9% 1, 600 000 ml @ 75 mls/hr IV . [id number] [facility] Rx#:[id number] Intake, IV Titration 500 Amount Sodium Chloride 0.9% 1, 500 000 ml @ 75 mls/hr IV . [id number] [facility] Rx#:[id number] Other: Voiding Method Toilet Toilet Urinal Urinal # Voids 1 1 Weight 68.039 kg 68.039 kg PHYSICAL EXAMINATION: GENERAL: The patient is alert and oriented x3, not in any acute distress. Well developed, well nourished. HEENT: Pupils are round and equally reacting to light. EOMI. No scleral icterus. No conjunctival pallor. Normocephalic, atraumatic. No pharyngeal erythema. No thyromegaly. CARDIOVASCULAR: S1 and S2 present. No murmurs, rubs, or gallops. PULMONARY: Chest is clear to auscultation, no wheezing or crackles. ABDOMEN: Soft, diffuse subjective tenderness nondistended, MUSCULOSKELETAL: No joint swelling or deformity. EXTREMITIES: No cyanosis, clubbing, or pedal edema. NEUROLOGICAL: Gross neurological examination did not reveal any focal deficits. SKIN: No rashes. Results CBC & Chem 7: 02/07/17 05:45 02/07/17 05:45 Labs: Abnormal Lab Results - Last 24 Hours (Table) 02/06/17 02/06/17 02/06/17 Range/Units 22:25 22:25 22:25 WBC 18.6 H (3.8-10.6) k/uL RBC (4.30-5.90) m/uL Hgb 12.1 L (13.0-17.5) gm/dL Hct (39.0-53.0) % MCHC 30.7 L (31.0-37.0) g/dL RDW 16.6 H (11.5-15.5) % Plt Count 487 H (150-450) k/uL Neutrophils # (1.3-7.7) k/uL Neutrophils # (Manual) 17.67 H (1.3-7.7) k/uL Lymphocytes # (1.0-4.8) k/uL Lymphocytes # (Manual) 0.19 L (1.0-4.8) k/uL PT 12.6 H (9.0-12.0) sec INR 1.3 H (<1.2) Chloride 97 L (98-107) mmol/L BUN 27 H (9-20) mg/dL Glucose 102 H (74-99) mg/dL Calcium 10.9 H (8.4-10.2) mg/dL Magnesium 2.7 H (1.6-2.3) mg/dL ALT 87 H (21-72) U/L Alkaline Phosphatase 371 H (38-126) U/L Total Creatine Kinase (55-170) U/L Total Protein (6.3-8.2) g/dL Albumin (3.5-5.0) g/dL 02/06/17 02/07/17 02/07/17 Range/Units 22:25 05:45 05:45 WBC 15.0 H (3.8-10.6) k/uL RBC 4.12 L (4.30-5.90) m/uL Hgb 10.9 L (13.0-17.5) gm/dL Hct 36.7 L (39.0-53.0) % MCHC 29.8 L (31.0-37.0) g/dL RDW 17.1 H (11.5-15.5) % Plt Count (150-450) k/uL Neutrophils # 13.7 H (1.3-7.7) k/uL Neutrophils # (Manual) (1.3-7.7) k/uL Lymphocytes # 0.2 L (1.0-4.8) k/uL Lymphocytes # (Manual) (1.0-4.8) k/uL PT (9.0-12.0) sec INR (<1.2) Chloride (98-107) mmol/L BUN 24 H (9-20) mg/dL Glucose (74-99) mg/dL Calcium (8.4-10.2) mg/dL Magnesium (1.6-2.3) mg/dL ALT 82 H (21-72) U/L Alkaline Phosphatase 315 H (38-126) U/L Total Creatine Kinase 49 L (55-170) U/L Total Protein 5.9 L (6.3-8.2) g/dL Albumin 3.2 L (3.5-5.0) g/dL Thrombosis Risk Factor Assmnt - Choose All That Apply Any of the Below Risk Factors Present?: Yes Each Factor Represents 1 point: Age 41-60 years Other Risk Factors: Yes Each Risk Factor Represents 3 Points: Family history of DVT/PE Thrombosis Risk Factor Assessment Total Risk Factor Score: 4 Thrombosis Risk Factor Assessment Level: Moderate Risk Assessment and Plan Plan: #1 abdominal pain: Secondary to metastatic disease pain management as mentioned above we'll switch him to oral medication continue with IV Dilaudid for breakthrough pain. #2 confusion and metabolic and toxic encephalopathy: Probably secondary to metastatic lesion we will rule out intracranial hemorrhage hold off on anticoagulation patient was started on Decadron. Radiation oncology was consulted. #3 atrial fibrillation: Rate controlled #4 lung cancer metastatic disease: Oncology was consulted.
--- NOTE | 2017-02-07 15:11 | CT ---
EXAMINATION TYPE: CT brain wo/w con DATE OF EXAM: 02/07/2017 COMPARISON: CT brain dated 01/18/2017 HISTORY: Pt has h/o Squamous Cell Lung CA with Rt parietal lesion. 100ml of Omni 300.Scanned by: SERGE TATE. CT DLP: 2053.8 mGycm Automated Exposure Control for Dose Reduction was Utilized. TECHNIQUE: CT scan of the head is performed with IV contrast.,CT scan of the head is performed withou t and with with IV Contrast, patient injected with 100ml mL of Omnipaque 300. CLINICAL HISTORY: Squamous cell carcinoma with intracranial metastasis FINDINGS: The exam is similar to the prior of 01/26/2017 with redemonstration of peripherally enhan cing (rim-enhancing) numerous intracranial metastases. The largest in the left cerebral hemisphere ag ain measures 1.6 cm in the frontal lobe with surrounding vasogenic edema on series 12 image 27. This is unchanged from the prior. The remaining other 5 left hemisphere masses are all within 1 mm of the previous measurements, and therefore given slice selection these are unchanged in size. This is the s shannon for the 2 right parietal peripherally enhancing masses as they measure 1.6 cm and 1.0 cm. No new intracranial enhancement or focal lesions are identified. The enhancing scalp lesion is also similar to the prior measuring 2.5 cm and previously measuring 2.4 cm. Normal variant cavum septum lucidum is identified. No hydrocephalus. No midline shift. No suspic ious extra-axial fluid collection. Stable dystrophic punctate calcification of the left basal ganglia . The left frontal lobe largest lesion displays minimal intratumoral hemorrhage on series 8 image 28 as does the right posterior parietal lesion as it is slightly hyperattenuated and image 28 and 29. No other areas of intracranial hemorrhage are seen. The right lytic lesion in the parietal bone measure s 8 mm and measures 7 mm on the prior examination, similar in size. IMPRESSION: Similar size and number of the known intracranial metastases (6 on the left and 2 on the right) with no midline shift. Two of these masses now demonstrate intratumoral minimal hemorrhage. Th ere is also stability of the right lytic parietal bone lesion and enhancing right parietal scalp mass .
[2017-02-07] MEDS: MORPHINE SULFATE ER 30 MG TABLET PO SCH ×2 (15:19→23:26)
[2017-02-07] MEDS: DEXAMETHASONE 4 MG TAB PO SCH ×2 (15:19→20:52)
[2017-02-07] MEDS: METOPROLOL TARTRATE 12.5 MG TAB PO SCH (20:52)
[2017-02-07] MEDS: DOCUSATE 100 MG CAP PO SCH (20:52)
[2017-02-08] MEDS: HYDROmorphone 4 MG/ML 1 ML SYRINGE IVP PRN ×5 (01:54→20:28)
[2017-02-08] MEDS: SODIUM CHLORIDE 0.9% 1,000 ML IV SCH ×2 (01:58→16:26)
[2017-02-08 06:58] LABS: Glucose,Whole Blood 86 mg/dL (75-99)
[2017-02-08] MEDS: DEXAMETHASONE 4 MG TAB PO SCH ×3 (08:22→22:50)
[2017-02-08] MEDS: METOPROLOL TARTRATE 12.5 MG TAB PO SCH ×2 (08:22→20:26)
[2017-02-08] MEDS: MORPHINE SULFATE ER 30 MG TABLET PO SCH ×3 (08:23→23:20)
[2017-02-08] MEDS: DOCUSATE 100 MG CAP PO SCH ×2 (08:23→20:26)
[2017-02-08] MEDS: MIDODRINE 5 MG TAB PO SCH ×3 (08:23→17:54)
[2017-02-08] MEDS ORDERED: IOHEXOL 350 MG/ML 25 ML BOTTLE (ORAL USE) PO PRN (12:59)
[2017-02-08] MEDS ORDERED: RX INFO: IV CONTRAST WAS GIVEN 1 EACH MISC MISCELLANE PRN (12:59)
--- NOTE | 2017-02-08 13:47 | P.PN ---
Subjective patient was admitted for abdominal pain secondary to peritoneal carcinomatosis and the metastatic lung cancer. delivery specialist is following the patient and the patient had a CAT scan of the head which showed mild intralesional hemorrhage into the metastatic lesions in the brain. Patient is undergoing radiation therapy and is on Decadron.increased number of abdominal pain. Constitutional: Denied any fatigue denied any fever. Cardio vascular: denied any chest pain, palpitations Gastrointestinal denied any nausea vomitingstill has abdominal pain Pulmonary: Denied any shortness of breath cough Neurologic denied any new focal deficits Objective - Vital Signs Vital signs: Vital Signs Temp 98.2 F 02/08/17 07:00 Pulse 72 02/08/17 07:00 Resp 16 02/08/17 07:00 BP 122/77 02/08/17 07:00 Pulse Ox 98 02/08/17 07:00 Intake & Output 02/07/17 02/08/17 02/08/17 18:59 06:59 18:59 Intake Total 600 825 Output Total 675 Balance 600 150 Weight 68.039 kg Intake: IV 600 825 Sodium Chloride 0.9% 1, 600 825 000 ml @ 75 mls/hr IV . [id number] Rx#:[id number] Output: Urine 675 Other: Voiding Method Toilet Toilet Toilet Urinal Urinal Urinal # Voids 1 1 - Exam PHYSICAL EXAMINATION: GENERAL: The patient is alert and oriented x3, not in any acute distress. Well developed, well nourished. HEENT: Pupils are round and equally reacting to light. EOMI. No scleral icterus. No conjunctival pallor. Normocephalic, atraumatic. No pharyngeal erythema. No thyromegaly. CARDIOVASCULAR: S1 and S2 present. No murmurs, rubs, or gallops. PULMONARY: Chest is clear to auscultation, no wheezing or crackles. ABDOMEN: Soft, diffuse subjective tenderness nondistended, MUSCULOSKELETAL: No joint swelling or deformity. EXTREMITIES: No cyanosis, clubbing, or pedal edema. NEUROLOGICAL: Gross neurological examination did not reveal any focal deficits. SKIN: No rashes. - Labs CBC & Chem 7: 02/07/17 05:45 02/07/17 05:45 Assessment and Plan Plan: #1 abdominal pain: Secondary to metastatic disease pain management as mentioned above we'll switch him to oral medication continue with IV Dilaudid for breakthrough pain.tumbling barrel painter is following the patient #2 confusion and metabolic and toxic encephalopathy: improved patient is on Decadron is undergoing radiation therapy patient has intralesional hemorrhage due to metastatic lesions of the brain. Anti-coagulationis on hold because of this intralesional hemorrhage #3 atrial fibrillation: Rate controlled #4 lung cancer metastatic disease: Oncology following the patient. Patient most probably can be discharged tomorrow
--- NOTE | 2017-02-08 15:59 | CT ---
EXAMINATION TYPE: CT abdomen pelvis w con DATE OF EXAM: 02/08/2017 COMPARISON: 01/17/2017 HISTORY: Abdominal pain. CT DLP: 404.3 mGycm Automated exposure control for dose reduction was used. CONTRAST: CT scan of the abdomen pelvis is performed with IV Contrast, patient injected with 100 mL of Omnipaqu e 300. FINDINGS- LUNG BASES- Heart and mediastinum are shifted to the left side with extensive consolidation and atel ectasis in the left lung. There is left pleural effusion. Volume loss likely postsurgical. . LIVER/GB-there are in numerable lesions within the liver occupying all lobes and segments with the la rgest involving the dome of the liver measuring 3.9 x 2.9 cm. This lesion appears stable in size allred curry there appears to be interval increase in number lesions throughout the liver. There multiple less than 5 mm pulmonary nodule within the right lower lobe suspicious for metastases. PANCREAS- No gross abnormality is seen. SPLEEN- No gross abnormality is seen. ADRENALS- No gross abnormality is seen. KIDNEYS/BLADDER- no hydronephrosis nephrolithiasis or renal mass. BOWEL- no bowel dilatation. Normal appendix. LYMPH NODES- No greater than 1cm abdominal or pelvic lymph nodes areappreciated. OSSEOUS STRUCTURES-stable rounded lucency involving the right femoral head compatible with metastases . Hypertrophic and degenerative change of the spine noted. OTHER- there is a large soft tissue mass involving the anterior abdominal musculature on image 46 me asuring 2.7 x 2.8 cm. Smaller intra-abdominal mass extending to the right rectus measures 9 mm suspec t additional 5 mm right rectus sheath mass.. A 2 smaller lesions appear to be increased in size from the previous exam. There are additional rounded densities within the left mid abdomen on axial image 49 which may represent additional focal areas of diastasis measuring 1 cm less. Small amount of free fluid in the pelvis noted. Soft tissue fullness in the pelvis on image 72 likely represents unopacified bowel loops and retrospectively stable. Small amount of free fluid around the liver. There is a 3 cm mass posterior and lateral to the right kidney which previously measured 2.5 cm appea rs to be related to a soft tissue area of metastases. IMPRESSION- 1. There is progression in the number of lesions within the liver involving all segments and lobes. 2. There is interval increase in size of a soft tissue mass posterior lateral the right kidney which now measures 3 cm and previously measured 2.5 cm. 3. Abdominal metastases to the rectus muscle demonstrated increased interval size relative the previo us exam as measured above. 4. Postsurgical change involving the left hemithorax. 5. There is a lucency involving the femoral head on the right compatible with metastases. 6. Findings involving the right lung are suspicious for pulmonary metastases
--- NOTE | 2017-02-08 17:39 | P.CONS ---
History of Present Illness - Reason for Consult Consult date: 02/08/17 metastatic lung cancer Requesting physician: Carolyn Barraza - Chief Complaint intractable abd pain - History of Present Illness This is another admit for Mr. Loya, he is a 56 yr old male pt who initially was diangosed and treated at [facility] now a pt of Dr. Charlton who initially presented in early 2015 with persistent cough that had not responded to treatment. CT on 06/17/15 revealed a 3 cm rt. hilar mass, 4 cm left infrahilar mass, 4.3 cm subcarinal node, 2.2 precarinal and 2 cm AP window node. A small left pleural effusion was also noted, bronchoscopy on 07/04/15 positive for squamous cell carcinoma, staging PET 07/19/15 was positive in the LLL mass, b/l paratracheal, AP window, subcarinal and rt hilar node, and mildly in the left pleura, thoracentesis was negative. Pt started concurrent chemo/RT with weekly Carbo/Taxol, treatment competed Sep. After treatment completed pt required VATS and chest tube placement for empyema and fibrinous pleuritis. Treatment follow up CT chest on 12/25/15 showed improvement in aforementioned conditions and from malignancy standpoint was otherwise stable. Next f/u CT Apr 2016 showed progression in the primary site from 2.7 to 3.7 cm, carbo/Alimta was started 05/28/16. Pt consulted at [facility] with Dr. Simpson. PET done there on 06/03/16 showed a 4.6 x 3.6 cm mass in the LLL, 1.1 cm satellite nodule in the LLL, and a subcarinal node so, gemzar was recommended for recurrent/stage IV disease. This is when pt wanted treatment closer to home. He was started on Gemzar single agent in late 06/15, treatment evaluation CT 11/03/16 showed evidence of progression at primary site as well as a periumbilical nodule and a right scalp subcutaneous nodule. Pt developed chest pain, and was admitted to [facility], with evidence of complete opacification of the left lung, it was unclear if on CT if PE in the left pulmonary artery or if direct invasion by the tumor so, when the pt showed up here for chest pain it was decided, after evaluation and consultation with pulmonary medicine, to treat him as for a PE. Pt received palliative radiation to the left lung with improvement in chest pain and umbilical nodule without benefit. He then started nivolumab and had 3 cycles, last dose 01/06/17. Since that time pt has been admitted to [facility] with intractable pain, with new nodules in liver and hypercalcemia, he was treated symptomatically and improved , pt then returned end of Dec, again for intractable abd pain and unfortunately on 01/26 he was found to have brain metastasis, currently receiving WBRT with Dr. Rowley, due to complete this Wed. There was discussion of systemic disease progression and there were plans to start chemo after radiation. Pt came to the hospital with c/o upper abd pain, worse in the epigastric area and RUQ, aggravated by touching the are or moving, only pain meds control the pain but if someone is not there to hand him his pills he "forgets" to take them. He currently is tolerating oral intake, denies nausea, vomiting, chest pain, he is SOB on exertion but comfortable at rest, he states he has not had a BM in 2 weeks. He is able to ambulate short distance, currently comfortable, denies fevers. Review of Systems Significant other at bedside. Pt has trouble staying on topic, answers are not always appropriate to questions Past Medical History Past Medical History: Atrial Fibrillation, Cancer Additional Past Medical History / Comment(s): Pt recently admitted 01/17/17 with hypercalcemia, abdominal pain. 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 History of Any Multi-Drug Resistant Organisms: None Reported Past Surgical History: No Surgical Hx Reported Additional Past Surgical History / Comment(s): Bronchoscopies/bx Past Anesthesia/Blood Transfusion Reactions: No Reported Reaction Past Psychological History: No Psychological Hx Reported Additional Psychological History / Comment(s): Pt resides with his brother and sister in law. He is independent. Smoking Status: Former smoker Past Alcohol Use History: None Reported Additional Past Alcohol Use History / Comment(s): Pt states he quit smoking in 2014. He has not drank alcohol in quite a while. Past Drug Use History: None Reported - Past Family History Father Family Medical History: CVA/TIA, Myocardial Infarction ([place]) Mother Family Medical History: Cancer Additional Family Medical History / Comment(s): Breast/ lymph nodes cancer Medications and Allergies Home Medications Medication Instructions Recorded Confirmed Type Zolpidem [Ambien] 10 mg PO HS 11/23/16 02/07/17 History Midodrine [ProAmatine] 5 mg PO TID 01/17/17 02/07/17 History Prochlorperazine [Compazine] 10 mg PO Q6H PRN 01/17/17 02/07/17 History Rivaroxaban [Xarelto] 20 mg PO DAILY@1200 01/17/17 02/07/17 History Dexamethasone [Hexadrol] 4 mg PO QID #120 tablet 01/26/17 02/07/17 Rx HYDROcodone/APAP 5-325MG [[place] 1 tab PO Q6H PRN 01/31/17 02/07/17 History 5-325] Docusate [Colace] 100 mg PO BID #60 capsule 02/02/17 02/07/17 Rx HYDROmorphone [Dilaudid] 2 mg PO Q2HR PRN #30 tab 02/02/17 02/07/17 Rx Lactulose 20 gm PO TID PRN #480 ml 02/02/17 02/07/17 Rx Metoprolol Tartrate [Lopressor] 12.5 mg PO BID #60 tab 02/02/17 02/07/17 Rx Morphine Sulfate ER [Ms Contin] 30 mg PO Q8HR #42 tablet 02/02/17 02/07/17 Rx Acetaminophen Tab [Tylenol] 650 mg PO Q6HR PRN tab 02/03/17 02/07/17 Rx Allergies Allergy/AdvReac Type Severity Reaction Status Date / Time No Known Allergies Allergy Verified 02/07/17 08:31 Physical Exam Vitals: Vital Signs Temp Pulse Resp BP Pulse Ox 02/08/17 07:00 98.2 F 72 16 122/77 98 02/07/17 22:11 98 F 127 H 20 142/92 98 02/07/17 15:00 97.8 F 119 H 18 123/71 96 Intake and Output 02/07/17 02/08/17 02/08/17 22:59 06:59 14:59 Intake Total 225 600 Output Total 250 425 Balance -25 175 Intake: IV 225 600 Sodium Chloride 0.9% 1, 225 600 000 ml @ 75 mls/hr IV . [id number] ON LICENSE OF [facility] Rx#:[id number] Output: Urine 250 425 Other: Voiding Method Toilet Toilet Toilet Urinal Urinal Urinal # Voids 1 1 - Constitutional General appearance: cooperative, no acute distress, thin - EENT Eyes: anicteric sclerae, EOMI, PERRLA, normal appearance ENT: hearing grossly normal, normal oropharynx - Respiratory Respiratory: bilateral: CTA, diminished - Cardiovascular PMI visible on chest wall Heart sounds: normal: S1, S2 - Gastrointestinal Pt guards abdomen, RIQ/epigastric area hard, fixed mass just able to be palpated before pt removes my hand (liver or other mass?), lower abd is softer, no palpable mass - Integumentary Integumentary: normal - Neurologic No gross focal or motor neuro deficits noted - Musculoskeletal Musculoskeletal: generalized weakness, strength equal bilaterally - Psychiatric Pt is alert, oriented to self, place, time. Events are hard for him to recall, he cannot remember to take his pain meds. Results CBC & Chem 7: 02/07/17 05:45 02/07/17 05:45 CT Scan - head: report reviewed Assessment and Plan (1) Cancer associated pain Narrative/Plan: Pt reports pain of 4 when seen, as long as he receives meds ATC his pain is controlled. Cont titration of pain meds for comfort. Current Visit: Yes Status: Acute Priority: High Code(s): G89.3 - NEOPLASM RELATED PAIN (ACUTE) (CHRONIC) SNOMED Code(s): 917390852 (2) Intractable abdominal pain Narrative/Plan: Secondary to cancer, CT AP ordered to re-evaluate the progress of disease in the liver/abd since pt has not received systemic therapy due to treatment of brain mets. Findings will have impact on prognosis and treatment plans for pt Current Visit: Yes Status: Acute Priority: High Code(s): R10.9 - UNSPECIFIED ABDOMINAL PAIN SNOMED Code(s): 51907227 (3) Lung cancer metastatic to brain Narrative/Plan: Case was reviewed with Dr. Rowley, not felt that brain mets are hemorrhaging so , cont anticoagulation for now. He will follow up with pt and determine plan to complete last 3 WBRT treatments Current Visit: Yes Status: Acute Priority: High Code(s): C34.90 - MALIGNANT NEOPLASM OF UNSP PART OF UNSP BRONCHUS OR LUNG; C79.31 - SECONDARY MALIGNANT NEOPLASM OF BRAIN SNOMED Code(s): 54649006 (4) Squamous cell carcinoma of lung, stage IV Narrative/Plan: Concern is that pt cannot manage his medication independently. We discussed detention care as home care does not provide ATC care or prolonged monitoring of a patient in the community setting. CT has been ordered to evaluate disease progression and we will meet in the AM to discuss the results, impact on prognosis and options for treatment. Current Visit: Yes Status: Chronic Priority: High Code(s): C34.90 - MALIGNANT NEOPLASM OF UNSP PART OF UNSP BRONCHUS OR LUNG SNOMED Code(s): 394214980 (5) Constipation Narrative/Plan: Pt states no BM x 2 weeks, strict I&O, more aggressive bowel maintenance program until BM confirmed. Current Visit: Yes Status: Acute Priority: Medium Code(s): K59.00 - CONSTIPATION, UNSPECIFIED SNOMED Code(s): 22655114
--- NOTE | 2017-02-08 20:28 | P.PAINCN ---
History of Present Illness - Reason for Consult Consult date: 02/08/17 Pain Management Requesting physician: Brook Gonzáles - Chief Complaint Abndominal Pain - History of Present Illness Thank you Myesha and Eliecer or allowing me to participate in the care of Mr. Loya. Mr Loya is a 56-year-old right-handed gentleman who lives with his brother and [id number] in their single level home with 1 step to enter. He has 11th grade education and formerly worked in skilled trades. He states he is independent for ADLs and requires assistance for IADLs. Mr. Loya was admitted for intractable abdominal pain secondary to metastatic lung cancer. He has had several recent admissions. He states that when he actually remembers to take his medication his pain is relatively well controlled. He does state however that often he will go 1-2 days without taking any pain medicine and then he his pain becomes out of control. He states on his current regimen of morphine 30 mg every 8 hours with Dilaudid as needed his pain is tolerable also as long as he takes his medication and does not participate in much activity. Currently in bed he states his pain is 3-4/ 10 in intensity and when he gets out of bed 8-9/10 in intensity. He continues to state that most of his pain is in his abdomen and he is still not had a bowel movement in about 2 weeks. Review of Systems 10 point review of system was performed and positive for abdominal pain, nausea , decreased appetite. Past Medical History Past Medical History: Atrial Fibrillation, Cancer Additional Past Medical History / Comment(s): Pt recently admitted 01/17/17 with hypercalcemia, abdominal pain. 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 History of Any Multi-Drug Resistant Organisms: None Reported Past Surgical History: No Surgical Hx Reported Additional Past Surgical History / Comment(s): Bronchoscopies/bx Past Anesthesia/Blood Transfusion Reactions: No Reported Reaction Past Psychological History: No Psychological Hx Reported Additional Psychological History / Comment(s): Pt resides with his brother and sister in law. He is independent. Smoking Status: Former smoker Past Alcohol Use History: None Reported Additional Past Alcohol Use History / Comment(s): Pt states he quit smoking in 2014. He has not drank alcohol in quite a while. Past Drug Use History: None Reported - Past Family History Father Family Medical History: CVA/TIA, Myocardial Infarction ([place]) Mother Family Medical History: Cancer Additional Family Medical History / Comment(s): Breast/ lymph nodes cancer Medications and Allergies Home Medications Medication Instructions Recorded Confirmed Type Zolpidem [Ambien] 10 mg PO HS 11/23/16 02/07/17 History Midodrine [ProAmatine] 5 mg PO TID 01/17/17 02/07/17 History Prochlorperazine [Compazine] 10 mg PO Q6H PRN 01/17/17 02/07/17 History Rivaroxaban [Xarelto] 20 mg PO DAILY@1200 01/17/17 02/07/17 History Dexamethasone [Hexadrol] 4 mg PO QID #120 tablet 01/26/17 02/07/17 Rx HYDROcodone/APAP 5-325MG [[place] 1 tab PO Q6H PRN 01/31/17 02/07/17 History 5-325] Docusate [Colace] 100 mg PO BID #60 capsule 02/02/17 02/07/17 Rx HYDROmorphone [Dilaudid] 2 mg PO Q2HR PRN #30 tab 02/02/17 02/07/17 Rx Lactulose 20 gm PO TID PRN #480 ml 02/02/17 02/07/17 Rx Metoprolol Tartrate [Lopressor] 12.5 mg PO BID #60 tab 02/02/17 02/07/17 Rx Morphine Sulfate ER [Ms Contin] 30 mg PO Q8HR #42 tablet 02/02/17 02/07/17 Rx Acetaminophen Tab [Tylenol] 650 mg PO Q6HR PRN tab 02/03/17 02/07/17 Rx Allergies Allergy/AdvReac Type Severity Reaction Status Date / Time No Known Allergies Allergy Verified 02/07/17 08:31 Physical Exam Osteopathic Statement: *. No significant issues noted on an osteopathic structural exam other than those noted in the History and Physical/Consult. Vitals: Vital Signs Temp Pulse Resp BP Pulse Ox 02/08/17 15:00 97.6 F 65 16 130/79 96 02/08/17 07:00 98.2 F 72 16 122/77 98 02/07/17 22:11 98 F 127 H 20 142/92 98 Intake and Output 12/11/17 12/11/17 12/11/17 06:59 14:59 22:59 Intake Total 600 600 Output Total 425 Balance 175 600 Intake: IV 600 600 Sodium Chloride 0.9% 1, 600 600 000 ml @ 75 mls/hr IV . [id number] [facility] Rx#:[id number] Output: Urine 425 Other: Voiding Method Toilet Toilet Toilet Urinal Urinal Urinal # Voids 1 Weight 68.039 kg Patient Weight 02/09/17 06:59 Weight 68.039 kg Gen.: Patient is alert and oriented not in acute distress, cachectic HEENT: Lesion present right-sided scalp, extraocular muscles intact Respiratory: No accessory muscle use was noted breathing was nonlabored. Cardiovascular: Regular rate and rhythm no peripheral edema noted Abdomen: Diffusely tender worse near the umbilicus, nondistended, taut Neurologic: Cranial nerves II through XII grossly intact, sensation light touch of the upper and lower extremities intact, patellar and Achilles reflexes 2/4 bilaterally, no ankle clonus was noted, Iqra sign was negative Musculoskeletal: Hip flexion 4/5 right 3+/5 left, knee extension 5/5 bilaterally , ankle inversion, eversion and dorsiflexion were 5 out of 5 bilaterally, EHL 5/ 5 right 4/5 left Results CBC & Chem 7: 02/07/17 05:45 02/07/17 05:45 Chest x-ray: report reviewed Abdominal x-ray: report reviewed CT scan - abdomen: report reviewed CT scan - chest: report reviewed CT Scan - head: report reviewed CT scan - pelvis: report reviewed US - abdomen: report reviewed MRI - abdomen: report reviewed MRI - head: report reviewed Venous US: report reviewed Assessment and Plan (1) Malignant cachexia Current Visit: Yes Status: Acute Code(s): R64 - [place] SNOMED Code(s): 422020261 (2) Cancer associated pain Current Visit: Yes Status: Acute Priority: High Code(s): G89.3 - NEOPLASM RELATED PAIN (ACUTE) (CHRONIC) SNOMED Code(s): 897223482 (3) Constipation Current Visit: Yes Status: Acute Priority: Medium Code(s): K59.00 - CONSTIPATION, UNSPECIFIED SNOMED Code(s): 13607775 (4) Intractable abdominal pain Current Visit: Yes Status: Acute Priority: High Code(s): R10.9 - UNSPECIFIED ABDOMINAL PAIN SNOMED Code(s): 39267018 (5) Lung cancer metastatic to brain Current Visit: Yes Status: Acute Priority: High Code(s): C34.90 - MALIGNANT NEOPLASM OF UNSP PART OF UNSP BRONCHUS OR LUNG; C79.31 - SECONDARY MALIGNANT NEOPLASM OF BRAIN SNOMED Code(s): 34361738 (6) Squamous cell carcinoma of lung, stage IV Current Visit: Yes Status: Chronic Priority: High Code(s): C34.90 - MALIGNANT NEOPLASM OF UNSP PART OF UNSP BRONCHUS OR LUNG SNOMED Code(s): 865777732 (7) Dehydration Current Visit: No Status: Acute Code(s): E86.0 - DEHYDRATION SNOMED Code(s ): 94013843 (8) Hypercalcemia Current Visit: No Status: Acute Priority: High Code(s): E83.52 - HYPERCALCEMIA SNOMED Code(s): 63347130 (9) Pleural effusion Current Visit: No Status: Acute Code(s): J90 - PLEURAL EFFUSION, NOT ELSEWHERE CLASSIFIED SNOMED Code(s): 40403450 (10) Recurrent cancer of left lung of unknown cell type Current Visit: No Status: Acute Code(s): C34.92 - MALIGNANT NEOPLASM OF UNSP PART OF LEFT BRONCHUS OR LUNG SNOMED Code(s): 90292708 (11) Small cell lung cancer Current Visit: No Status: Acute Code(s): C34.90 - MALIGNANT NEOPLASM OF UNSP PART OF UNSP BRONCHUS OR LUNG SNOMED Code(s): 326533377 Plan: We will try changing patient's medication regimen from MS ER 30 mg 3 times daily to fentanyl patch 50 g every 72 hours. This will help decrease often the patient needs to think about his pain medication. Discussed with the patient that he and his family should write on the patch with a sharpie when the next patch change is. My only concern with the fentanyl patch is that the patient does not have much fat reservoir and it may not work as well as hoped. Patient is to continue Dilaudid 4 mg every 4 hours as needed for pain orally. Discussed with patient that he should program his phone to alarm every 4 hours as a reminder to take his pain medicine. Patient should probably be on movantik to facilitate bowel movements. If patient is discharged tomorrow he can follow-up in the office within 1 week for further management. Time with Patient: Greater than 30 PQRS Measure Charge Sheet PQRS Narrative: Smoking Status Former smoker Do You Want the Pneumonia Vaccine Up to Date Vaccine AT THIS TIME? Blood Pressure [Left Arm] 130/79 Blood Pressure 143/67 Pain Intensity 4 Pain Scale Used Numeric (1 - 10) Scale Used Numeric (1 - 10) Home Medications: Ambulatory Orders Zolpidem [Ambien] 10 mg PO HS 11/23/16 Midodrine [ProAmatine] 5 mg PO TID 01/17/17 Prochlorperazine [Compazine] 10 mg PO Q6H PRN 01/17/17 Rivaroxaban [Xarelto] 20 mg PO DAILY@1200 01/17/17 Dexamethasone [Hexadrol] 4 mg PO QID #120 tablet 01/26/17 HYDROcodone/APAP 5-325MG [[place] 5-325] 1 tab PO Q6H PRN 01/31/17 Docusate [Colace] 100 mg PO BID #60 capsule 02/02/17 HYDROmorphone [Dilaudid] 2 mg PO Q2HR PRN #30 tab 02/02/17 Lactulose 20 gm PO TID PRN #480 ml 02/02/17 Metoprolol Tartrate [Lopressor] 12.5 mg PO BID #60 tab 02/02/17 Morphine Sulfate ER [Ms Contin] 30 mg PO Q8HR #42 tablet 02/02/17 Acetaminophen Tab [Tylenol] 650 mg PO Q6HR PRN tab 02/03/17
[2017-02-09] MEDS: HYDROmorphone 2 MG TAB PO PRN ×5 (04:24→23:01)
[2017-02-09] MEDS: SODIUM CHLORIDE 0.9% 1,000 ML IV SCH ×2 (05:00→18:14)
[2017-02-09 07:53] LABS: HCT 34.2 % (39.0-53.0); HGB 10.4 gm/dL (13.0-17.5); Hypochromasia Moderate; MCHC 30.5 g/dL (31.0-37.0); MCV 88.3 fL (80.0-100.0); Mean Platelet Volume 6.9; Platelet Count 396 k/uL (150-450); RBC 3.87 m/uL (4.30-5.90); RDW 15.7 % (11.5-15.5); WBC 17.2 k/uL (3.8-10.6)
[2017-02-09 08:28] LABS: Anion Gap 6 mmol/L; Blood Urea Nitrogen 14 mg/dL (9-20); Calcium 9.4 mg/dL (8.4-10.2); Carbon Dioxide 27 mmol/L (22-30); Chloride 101 mmol/L (98-107); Glucose 77 mg/dL (74-99); Potassium 4.1 mmol/L (3.5-5.1); Sodium 134 mmol/L (137-145)
[2017-02-09] MEDS: DEXAMETHASONE 4 MG TAB PO SCH ×3 (08:41→23:01)
[2017-02-09] MEDS: MIDODRINE 5 MG TAB PO SCH ×3 (08:41→18:15)
[2017-02-09] MEDS: METOPROLOL TARTRATE 12.5 MG TAB PO SCH ×2 (08:41→20:56)
[2017-02-09] MEDS: DOCUSATE 100 MG CAP PO SCH ×2 (08:41→20:56)
[2017-02-09 14:49] VITALS: RESP 16
--- NOTE | 2017-02-09 15:36 | P.PN ---
Subjective Progress Note Date: 02/09/17 Principal diagnosis: intractable malignancy pain Pt seen with [id number] at bedside and EDUCATION INTERN present. Pt states decent pain control at this time, he states eating and drinking but it is documented only very limited oral intake (240ml documented in 3 days), pt states standing at bedside to urinate, confirmed with staff pt has not stood at bedside or ambulated in several days. Pt had difficulty responding to questions as he forgets what we were talking about, he makes statements that are not in the context of conversation and he is not able to clearly state what information he wants or clarify what information he understands. Objective - Vital Signs Vital signs: Vital Signs Temp 95.0 F L 02/09/17 14:48 Pulse 57 L 02/09/17 14:48 Resp 16 02/09/17 14:48 BP 120/74 02/09/17 14:48 Pulse Ox 97 02/09/17 14:48 Intake & Output 02/08/17 02/09/17 02/09/17 18:59 06:59 18:59 Intake Total 600 240 Output Total 300 Balance 600 240 -300 Weight 68.039 kg 68.039 kg Intake: IV 600 Sodium Chloride 0.9% 1, 600 000 ml @ 75 mls/hr IV . [id number] [facility] Rx#:[id number] Oral 240 Output: Urine 300 Other: Voiding Method Toilet Toilet Toilet Urinal Urinal Urinal # Voids 1 - Constitutional Constitutional Comment(s): appears comfortable sitting up in bed, no visible respiratory distress. Pt did become agitated with conversation and had difficulty understanding his cancer prognosis and physician recommendations. General appearance: Present: thin - Labs CBC & Chem 7: 02/09/17 07:09 02/09/17 07:09 Labs: Abnormal Lab Results - Last 24 Hours (Table) 02/09/17 02/09/17 Range/Units 07:09 07:09 WBC 17.2 H (3.8-10.6) k/uL RBC 3.87 L (4.30-5.90) m/uL Hgb 10.4 L (13.0-17.5) gm/dL Hct 34.2 L (39.0-53.0) % MCHC 30.5 L (31.0-37.0) g/dL RDW 15.7 H (11.5-15.5) % Sodium 134 L (137-145) mmol/L Creatinine 0.59 L (0.66-1.25) mg/dL Assessment and Plan (1) Cancer associated pain Current Visit: Yes Status: Acute Priority: High Code(s): G89.3 - NEOPLASM RELATED PAIN (ACUTE) (CHRONIC) SNOMED Code(s): 915516294 (2) Intractable abdominal pain Narrative/Plan: Due to metastatic disease. Pain Management has seen pt and made adjustments, pt pain improved. Current Visit: Yes Status: Acute Priority: High Code(s): R10.9 - UNSPECIFIED ABDOMINAL PAIN SNOMED Code(s): 39700991 (3) Lung cancer metastatic to brain Current Visit: Yes Status: Acute Priority: High Code(s): C34.90 - MALIGNANT NEOPLASM OF UNSP PART OF UNSP BRONCHUS OR LUNG; C79.31 - SECONDARY MALIGNANT NEOPLASM OF BRAIN SNOMED Code(s): 87169594 (4) Squamous cell carcinoma of lung, stage IV Current Visit: Yes Status: Chronic Priority: High Code(s): C34.90 - MALIGNANT NEOPLASM OF UNSP PART OF UNSP BRONCHUS OR LUNG SNOMED Code(s): 016184729 (5) Constipation Current Visit: Yes Status: Acute Priority: Medium Code(s): K59.00 - CONSTIPATION, UNSPECIFIED SNOMED Code(s): 67712367 Plan: Pain is currently controlled. This is not a problem as long as someone is able to remind, offer and give pt his meds. For the last month pt has over estimated his abilities to manage his meds as evidenced by last 3 admissions to the hospital for intractable pain, [id number] who is caring for pt confirms this. [id number]-hj-wde discussed with myself and EDUCATION INTERN the she is no longer able to provide the level of care the pt requires. Discussed today with the pt and ccedue-de-bzy that on yesterdays CT there is disease progression in the liver. We also discussed rapidly declining performance status. In his current physical state pt is not a candidate for chemotherapy. If pt were to be able to rehabilitate to a performance status that he could receive treatment, the options for treatment are now limited to 4th line single agent, which has <20% chance of providing any notable or durable response. There would also be a significant physical impact because the pt is already in a fragile state. Recommendation is for skilled/ATC care with hospice. I do not believe that pt was understanding our discussion as he was not able to answer questions nor express his questions or concerns clearly. Khexar-yx-[id number] and EDUCATION INTERN were clear as to the recommendations. This information will be communicate to pt children, we are available with any questions or concerns. Pt children would like pt closer to their homes so, EDUCATION INTERN is working with them to find accommodating facility. Time with Patient: Greater than 30 (counseling and coordinating care, case discussed with EDUCATION INTERN, Dr. Charlton)
--- NOTE | 2017-02-09 18:33 | P.PN ---
Subjective Progress Note Date: 02/09/17 Principal diagnosis: Pain due to malignancy Mr. Loya states that he had radiation today and believes he has one more treatment tomorrow. He states that his pain has been fairly well controlled on the new regimen. His greatest area of pain continues to be his abdomen and he states he did have some bowel movement today. His family is here to discuss his pain control options and discharge. Review of Systems 10 point review of system was performed and positive for abdominal pain, nausea , decreased appetite. Objective - Vital Signs Vital signs: Vital Signs Temp 95.0 F L 02/09/17 14:48 Pulse 57 L 02/09/17 14:48 Resp 16 02/09/17 14:48 BP 120/74 02/09/17 14:48 Pulse Ox 97 02/09/17 14:48 Intake & Output 02/08/17 02/09/17 02/09/17 18:59 06:59 18:59 Intake Total 600 240 Output Total 725 Balance 600 240 -725 Weight 68.039 kg 68.039 kg Intake: IV 600 Sodium Chloride 0.9% 1, 600 000 ml @ 75 mls/hr IV . [id number] [facility] Rx#:[id number] Oral 240 Output: Urine 725 Other: Voiding Method Toilet Toilet Toilet Urinal Urinal Urinal # Voids 1 2 - Exam Gen.: Patient is alert and oriented not in acute distress, cachectic HEENT: Lesion present right-sided scalp, extraocular muscles intact Respiratory: No accessory muscle use was noted breathing was nonlabored. Cardiovascular: Regular rate and rhythm no peripheral edema noted Abdomen: Diffusely tender worse near the umbilicus, nondistended, taut Neurologic: Cranial nerves II through XII grossly intact, sensation light touch of the upper and lower extremities intact, patellar and Achilles reflexes 2/4 bilaterally, no ankle clonus was noted, Iqra sign was negative Musculoskeletal: Hip flexion 4/5 right 3+/5 left, knee extension 5/5 bilaterally , ankle inversion, eversion and dorsiflexion were 5 out of 5 bilaterally, EHL 5/ 5 right 4/5 left - Labs CBC & Chem 7: 02/09/17 07:09 02/09/17 07:09 Labs: Abnormal Lab Results - Last 24 Hours (Table) 02/09/17 02/09/17 Range/Units 07:09 07:09 WBC 17.2 H (3.8-10.6) k/uL RBC 3.87 L (4.30-5.90) m/uL Hgb 10.4 L (13.0-17.5) gm/dL Hct 34.2 L (39.0-53.0) % MCHC 30.5 L (31.0-37.0) g/dL RDW 15.7 H (11.5-15.5) % Sodium 134 L (137-145) mmol/L Creatinine 0.59 L (0.66-1.25) mg/dL Assessment and Plan (1) Malignant cachexia Current Visit: Yes Status: Acute Code(s): R64 - CACHEXIA SNOMED Code(s): 354929653 (2) Cancer associated pain Current Visit: Yes Status: Acute Priority: High Code(s): G89.3 - NEOPLASM RELATED PAIN (ACUTE) (CHRONIC) SNOMED Code(s): 302779556 (3) Constipation Current Visit: Yes Status: Acute Priority: Medium Code(s): K59.00 - CONSTIPATION, UNSPECIFIED SNOMED Code(s): 38454415 (4) Intractable abdominal pain Current Visit: Yes Status: Acute Priority: High Code(s): R10.9 - UNSPECIFIED ABDOMINAL PAIN SNOMED Code(s): 21296990 (5) Lung cancer metastatic to brain Current Visit: Yes Status: Acute Priority: High Code(s): C34.90 - MALIGNANT NEOPLASM OF UNSP PART OF UNSP BRONCHUS OR LUNG; C79.31 - SECONDARY MALIGNANT NEOPLASM OF BRAIN SNOMED Code(s): 96565342 (6) Squamous cell carcinoma of lung, stage IV Current Visit: Yes Status: Chronic Priority: High Code(s): C34.90 - MALIGNANT NEOPLASM OF UNSP PART OF UNSP BRONCHUS OR LUNG SNOMED Code(s): 704594094 (7) Dehydration Current Visit: No Status: Acute Code(s): E86.0 - DEHYDRATION SNOMED Code(s ): 82230740 (8) Hypercalcemia Current Visit: No Status: Acute Priority: High Code(s): E83.52 - HYPERCALCEMIA SNOMED Code(s): 01068156 (9) Pleural effusion Current Visit: No Status: Acute Code(s): J90 - PLEURAL EFFUSION, NOT ELSEWHERE CLASSIFIED SNOMED Code(s): 60703554 (10) Recurrent cancer of left lung of unknown cell type Current Visit: No Status: Acute Code(s): C34.92 - MALIGNANT NEOPLASM OF UNSP PART OF LEFT BRONCHUS OR LUNG SNOMED Code(s): 69420303 (11) Small cell lung cancer Current Visit: No Status: Acute Code(s): C34.90 - MALIGNANT NEOPLASM OF UNSP PART OF UNSP BRONCHUS OR LUNG SNOMED Code(s): 149184806 Plan: Discussed with patient and family that with his current regimen there is plenty of room to increase the doses as needed to control his pain. Fentnyl patch can be titrated upward and the dosing interval decreased from 72 hours to 48 hours if necessary. Dilaudid orally as needed can also be increased in the past 14 hours patient is only had 3 doses of Dilaudid. At this time I would continue the current medication regimen of fentanyl 50 g every 72 hours and Dilaudid 2 mg by mouth every 3 hours as needed. Patient and family are discussing hospice discharge. Discussed with patient and family that at hospice staff are well versed titration of pain medication medications and would be in charge of timing of medications. Discussed that if discharges other the date of next patch change should be written on the patch with a sharpie and the patient can set alarm on his phone when at this time for next dose of oral pain medication. If regimen fails to be adequate in the future if patient is a hospice he can have IV Dilaudid infusion. If going a hospice I think patient should be put on medication for opiate-induced constipation which may also help some of his chronic abdominal pain. I would advise symproic 0.2mg/day. Time with Patient: Greater than 30
--- NOTE | 2017-02-09 21:28 | P.PN ---
Subjective Progress Note Date: 02/09/17 Principal diagnosis: Abdominal pain due to metastatic lung cancer patient was admitted for abdominal pain secondary to peritoneal carcinomatosis and the metastatic lung cancer. refrigeration specialist is following the patient and the patient had a CAT scan of the head which showed mild intralesional hemorrhage into the metastatic lesions in the brain. Patient is undergoing radiation therapy and is on Decadron.increased number of abdominal pain. 2016 Patient had radiation therapy today. Patient still complaining of abdominal pain. Patient is seen by pain management consult and was started on fentanyl patch and Dilaudid IV when necessary for breakthrough pain. Family is discussing with hospice care today. Constitutional: Denied any fatigue denied any fever. Cardio vascular: denied any chest pain, palpitations Gastrointestinal denied any nausea vomiting, still has abdominal pain Pulmonary: Denied any shortness of breath cough Neurologic denied any new focal deficits Objective - Vital Signs Vital signs: Vital Signs Temp 95.0 F L 02/09/17 14:48 Pulse 57 L 02/09/17 14:48 Resp 16 02/09/17 14:48 BP 120/74 02/09/17 14:48 Pulse Ox 97 02/09/17 14:48 Intake & Output 02/09/17 02/09/17 02/10/17 06:59 18:59 06:59 Intake Total 240 Output Total 725 Balance 240 -725 Weight 68.039 kg Intake: Oral 240 Output: Urine 725 Other: Voiding Method Toilet Toilet Urinal Urinal # Voids 2 - Exam GENERAL: The patient is alert and oriented x3, not in any acute distress. Well developed, well nourished. HEENT: Pupils are round and equally reacting to light. EOMI. No scleral icterus. No conjunctival pallor. Normocephalic, atraumatic. No pharyngeal erythema. No thyromegaly. CARDIOVASCULAR: S1 and S2 present. No murmurs, rubs, or gallops. PULMONARY: Chest is clear to auscultation, no wheezing or crackles. ABDOMEN: Soft, diffuse subjective tenderness nondistended, MUSCULOSKELETAL: No joint swelling or deformity. EXTREMITIES: No cyanosis, clubbing, or pedal edema. NEUROLOGICAL: Gross neurological examination did not reveal any focal deficits. SKIN: No rashes. - Labs CBC & Chem 7: 02/09/17 07:09 02/09/17 07:09 Labs: Abnormal Lab Results - Last 24 Hours (Table) 02/09/17 02/09/17 Range/Units 07:09 07:09 WBC 17.2 H (3.8-10.6) k/uL RBC 3.87 L (4.30-5.90) m/uL Hgb 10.4 L (13.0-17.5) gm/dL Hct 34.2 L (39.0-53.0) % MCHC 30.5 L (31.0-37.0) g/dL RDW 15.7 H (11.5-15.5) % Sodium 134 L (137-145) mmol/L Creatinine 0.59 L (0.66-1.25) mg/dL Assessment and Plan Assessment: #1 abdominal pain: Secondary to metastatic disease. pain management consult is following. #2 confusion and metabolic and toxic encephalopathy: improved patient is on Decadron. Patient is undergoing radiation therapy . patient has intralesional hemorrhage due to metastatic lesions of the brain. Anti-coagulationis on hold because of this intralesional hemorrhage #3 atrial fibrillation: Rate controlled #4 lung cancer metastatic disease: Oncology following the patient. Patient most probably can be discharged tomorrow once pain is better controlled and families is discussing with hospice care.
[2017-02-10] MEDS: HYDROmorphone 2 MG TAB PO PRN ×5 (05:00→20:20)
[2017-02-10] MEDS: SODIUM CHLORIDE 0.9% 1,000 ML IV SCH ×2 (05:00→19:33)
[2017-02-10] MEDS ORDERED: HYDROmorphone 1 MG/ML 1 ML SYRINGE IVP STA ×2 (06:13→12:03)
[2017-02-10] MEDS: METOPROLOL TARTRATE 12.5 MG TAB PO SCH ×2 (09:37→20:19)
[2017-02-10] MEDS: MIDODRINE 5 MG TAB PO SCH ×3 (09:38→17:25)
[2017-02-10] MEDS: DOCUSATE 100 MG CAP PO SCH ×2 (09:38→20:19)
[2017-02-10] MEDS: DEXAMETHASONE 4 MG TAB PO SCH ×3 (09:38→21:52)
--- NOTE | 2017-02-10 18:14 | P.PN ---
Subjective Progress Note Date: 02/10/17 Principal diagnosis: Pain due to malignancy Mr. Loya states today that his pain control has not been as good as it was yesterday anal intensity has been anywhere from 4-8/10. He states he had some more small bowel movements today. He states that he may be discharged tomorrow to a hospice facility however is worried about future pain control at another facility. Review of Systems 10 point review of system was performed and positive for abdominal pain, nausea , decreased appetite. Objective - Vital Signs Vital signs: Vital Signs Temp 97.6 F 02/10/17 15:00 Pulse 50 L 02/10/17 15:00 Resp 16 02/10/17 15:00 BP 123/69 02/10/17 15:00 Pulse Ox 98 02/10/17 15:00 Intake & Output 02/09/17 02/10/17 02/10/17 18:59 06:59 18:59 Intake Total 360 Output Total 725 500 Balance -725 360 -500 Weight 68.039 kg 68.039 kg Intake: Oral 360 Output: Urine 725 500 Other: Voiding Method Toilet Toilet Toilet Urinal Urinal Urinal # Voids 2 - Exam Gen.: Patient is alert and oriented not in acute distress, cachectic HEENT: Lesion present right-sided scalp, extraocular muscles intact Respiratory: No accessory muscle use was noted breathing was nonlabored. Cardiovascular: Regular rate and rhythm no peripheral edema noted Abdomen: Diffusely tender worse near the umbilicus, nondistended, taut Neurologic: Cranial nerves II through XII grossly intact, sensation light touch of the upper and lower extremities intact, patellar and Achilles reflexes 2/4 bilaterally, no ankle clonus was noted, Iqra sign was negative Musculoskeletal: Hip flexion 4/5 right 3+/5 left, knee extension 5/5 bilaterally , ankle inversion, eversion and dorsiflexion were 5 out of 5 bilaterally, EHL 5/ 5 right 4/5 left - Labs CBC & Chem 7: 02/09/17 07:09 02/09/17 07:09 Assessment and Plan Assessment: Anxiety (1) Malignant cachexia Current Visit: Yes Status: Acute Code(s): R64 - CACHEXIA SNOMED Code(s): 227213586 (2) Cancer associated pain Current Visit: Yes Status: Acute Priority: High Code(s): G89.3 - NEOPLASM RELATED PAIN (ACUTE) (CHRONIC) SNOMED Code(s): 363732417 (3) Constipation Current Visit: Yes Status: Acute Priority: Medium Code(s): K59.00 - CONSTIPATION, UNSPECIFIED SNOMED Code(s): 76914952 (4) Intractable abdominal pain Current Visit: Yes Status: Acute Priority: High Code(s): R10.9 - UNSPECIFIED ABDOMINAL PAIN SNOMED Code(s): 10084240 (5) Lung cancer metastatic to brain Current Visit: Yes Status: Acute Priority: High Code(s): C34.90 - MALIGNANT NEOPLASM OF UNSP PART OF UNSP BRONCHUS OR LUNG; C79.31 - SECONDARY MALIGNANT NEOPLASM OF BRAIN SNOMED Code(s): 60348286 (6) Squamous cell carcinoma of lung, stage IV Current Visit: Yes Status: Chronic Priority: High Code(s): C34.90 - MALIGNANT NEOPLASM OF UNSP PART OF UNSP BRONCHUS OR LUNG SNOMED Code(s): 353660440 (7) Dehydration Current Visit: No Status: Acute Code(s): E86.0 - DEHYDRATION SNOMED Code(s ): 38034554 (8) Hypercalcemia Current Visit: No Status: Acute Priority: High Code(s): E83.52 - HYPERCALCEMIA SNOMED Code(s): 89462986 (9) Pleural effusion Current Visit: No Status: Acute Code(s): J90 - PLEURAL EFFUSION, NOT ELSEWHERE CLASSIFIED SNOMED Code(s): 42052083 (10) Recurrent cancer of left lung of unknown cell type Current Visit: No Status: Acute Code(s): C34.92 - MALIGNANT NEOPLASM OF UNSP PART OF LEFT BRONCHUS OR LUNG SNOMED Code(s): 89533531 (11) Small cell lung cancer Current Visit: No Status: Acute Code(s): C34.90 - MALIGNANT NEOPLASM OF UNSP PART OF UNSP BRONCHUS OR LUNG SNOMED Code(s): 799167173 Plan: Will increase patient's fentanyl patch from 50 g every 72 hours to 75 g every 48 hours. Will increase Dilaudid from 2 mg to 4 mg every 3 hours. We'll add Cymbalta 30 mg for anxiety and as adjuvant pain control. Stress with the patient that have left a prescription for syproic the hard chart which may help alleviate some constipation and also help alleviate pain. If necessary prior to discharge anesthesia service could perform celiac plexus block/neurolysis or place a tunneled epidural catheter as I am unable to perform these interventions interventions at this facility. Time with Patient: Less than 30
--- NOTE | 2017-02-10 22:47 | P.PN ---
Subjective Progress Note Date: 02/10/17 Principal diagnosis: Abdominal pain due to metastatic lung cancer patient was admitted for abdominal pain secondary to peritoneal carcinomatosis and the metastatic lung cancer. funding specialist is following the patient and the patient had a CAT scan of the head which showed mild intralesional hemorrhage into the metastatic lesions in the brain. Patient is undergoing radiation therapy and is on Decadron.increased number of abdominal pain. 2016 Patient had radiation therapy today. Patient still complaining of abdominal pain. Patient is seen by pain management consult and was started on fentanyl patch and Dilaudid IV when necessary for breakthrough pain. Family is discussing with hospice care today. 02/10/2017 Patient is still complaining of abdominal pain and is very anxious going to hospice care. Otherwise pain medications have been increased today. Constitutional: Denied any fatigue denied any fever. Cardio vascular: denied any chest pain, palpitations Gastrointestinal denied any nausea vomiting, still has abdominal pain Pulmonary: Denied any shortness of breath cough Neurologic denied any new focal deficits Objective - Vital Signs Vital signs: Vital Signs Temp 97.6 F 02/10/17 15:00 Pulse 50 L 02/10/17 15:00 Resp 16 02/10/17 15:00 BP 123/69 02/10/17 15:00 Pulse Ox 98 02/10/17 15:00 Intake & Output 02/10/17 02/10/17 02/11/17 06:59 18:59 06:59 Intake Total 360 150 Output Total 500 Balance 360 -500 150 Weight 68.039 kg 68.039 kg Intake: Oral 360 150 Output: Urine 500 Other: Voiding Method Toilet Toilet Urinal Urinal - Exam GENERAL: The patient is alert and oriented x3, not in any acute distress. Well developed, well nourished. HEENT: Pupils are round and equally reacting to light. EOMI. No scleral icterus. No conjunctival pallor. Normocephalic, atraumatic. No pharyngeal erythema. No thyromegaly. CARDIOVASCULAR: S1 and S2 present. No murmurs, rubs, or gallops. PULMONARY: Chest is clear to auscultation, no wheezing or crackles. ABDOMEN: Soft, diffuse subjective tenderness nondistended, MUSCULOSKELETAL: No joint swelling or deformity. EXTREMITIES: No cyanosis, clubbing, or pedal edema. NEUROLOGICAL: Gross neurological examination did not reveal any focal deficits. SKIN: No rashes. - Labs CBC & Chem 7: 02/09/17 07:09 02/09/17 07:09 Assessment and Plan Assessment: #1 abdominal pain: Secondary to metastatic disease. pain management consult is following. #2 confusion and metabolic and toxic encephalopathy: improved. patient is on Decadron. Patient is undergoing radiation therapy . patient has intralesional hemorrhage due to metastatic lesions of the brain. Anti-coagulationis on hold because of this intralesional hemorrhage #3 atrial fibrillation: Rate controlled #4 lung cancer metastatic disease: Oncology following the patient. Patient will be continued on fentanyl patch, Dilaudid by mouth and Cymbalta has been added for anxiety. Otherwise patient completed radiation therapy today. Patient most probably can be discharged tomorrow once pain is better controlled.
[2017-02-11] MEDS: HYDROmorphone 2 MG TAB PO PRN ×3 (04:00→16:59)
[2017-02-11] MEDS: DEXAMETHASONE 4 MG TAB PO SCH ×2 (08:26→17:00)
[2017-02-11] MEDS: MIDODRINE 5 MG TAB PO SCH ×3 (08:26→17:00)
[2017-02-11] MEDS: METOPROLOL TARTRATE 12.5 MG TAB PO SCH (08:26)
[2017-02-11] MEDS: DOCUSATE 100 MG CAP PO SCH (08:26)
[2017-02-11] MEDS: SODIUM CHLORIDE 0.9% 1,000 ML IV SCH (08:40)
[2017-02-11] MEDS ORDERED: DULoxetine HCL 30 MG CAPSULE.DR PO SCH (09:00)
[2017-02-11 15:23] VITALS: BP 138/80; PULSE 64; TEMP 98
--- NOTE | 2017-02-11 15:23 | CDI ---
In responding to this query, please exercise your independent professional judgment. The [facility] Coding Staff and Clinical Documentation Specialists appreciate your assistance in clarifying documentation, maintaining compliance with coding guidelines, accurately documenting patients condition and capturing severity of illness. The fact that a question is asked does not imply that any particular answer is desired or expected. Communication forms are a method of clarifying documentation and are not made part of the Legal Health Record. Thank you in advance for your clarification. Last Revision, December 2014 Jaci Chau [address] [facility] [place] [address] Documentation Clarification Form Date: 02/11/2017 3:16:00 PM From: Nusrat Kat CCS, CCDS Admit Date: 02/06/2017 11:43:00 PM Patient Name: Joe Loya Visit Number: [id number] Discharge Date: Dr. Doris Ruiz: Patient is admitted with neoplastic related pain with known lung cancer with mets to the brain. Per the 02/07 CT Brain: The largest in the left cerebral hemisphere again measures 1.6 cm in the frontal lobe with surrounding vasogenic edema on series 12 image 27. History/Risk Factors: Cancer per above status post radiation & chemotherapy. Clinical Indicators: Presented with intractable pain, weakness, cachexia & confusion. Labs: WBC 18.6^, Hgb 12.1*, Neut 17.67^, Adalberto 10.9^, Mag 2.7^. Consults: Oncology & Pain Management Treatment: po & IV Dilaudid prn, IV fluid boluses, IV Ativan In your professional opinion, can you please clarify the underlying cause, condition or process, if any, represented by these findings? Cytotoxic cerebral edema Vasogenic cerebral edema Traumatic cerebral edema Please include with or without loss of consciousness and duration (if known) Other cerebral edema, please specify Cerebral edema, etiology unknown Intracerebral hemorrhage Please include site if known Unable to determine Other condition, please specify Please document in your progress notes and discharge summary in order to capture severity of illness and risk of mortality. Include clinical findings that support your diagnosis. FYI: Press F11 to launch patient chart MTDD
--- NOTE | 2017-02-11 15:34 | CDI ---
In responding to this query, please exercise your independent professional judgment. The [facility] Coding Staff and Clinical Documentation Specialists appreciate your assistance in clarifying documentation, maintaining compliance with coding guidelines, accurately documenting patients condition and capturing severity of illness. The fact that a question is asked does not imply that any particular answer is desired or expected. Communication forms are a method of clarifying documentation and are not made part of the Legal Health Record. Thank you in advance for your clarification. Last Revision, December 2014 Jaci Chau [address] [facility] [place] [address] Documentation Clarification Form Date: 02/11/2017 3:25:00 PM From: Nusrat Kat CCS, CCDS Admit Date: 02/06/2017 11:43:00 PM Patient Name: Joe Loya Visit Number: [id number] Discharge Date: Dr. Rafael Webber Malignant cachexia has been documented in the pain management notes. 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 Clinical Indicators: Presented with intractable neoplasm related pain. Labs: Total Protein 7.1 - 5.9*; Albumin 3.9 - 3.2*. Current BMI: 18.7 Nutritional assessment: Appetite: fair, Consuming 0-25% meals on clear liquid diet initially. Inadequate oral intake. Treatment: po & IV pain meds, IV antiemetics. Supplements: Ensure TID. In your professional opinion, can you please clarify if these findings signify one of the following conditions? Mild Protein Malnutrition Mild Protein-Calorie Malnutrition Moderate Protein Malnutrition Moderate Protein-Calorie Malnutrition Severe Protein Malnutrition Severe Protein-Calorie Malnutrition Other condition, please specify Unable to determine Please document in your progress notes and discharge summary in order to capture severity of illness and risk of mortality. Include clinical findings that support your diagnosis. FYI: Press F11 to launch patient chart. MTDD
--- NOTE | 2017-02-15 07:25 | DS ---
DISCHARGE SUMMARY ADMISSION DIAGNOSES: 1. Abdominal pain secondary to metastatic lung cancer. 2. Confusion. 3. Metabolic and toxic encephalopathy. 4. Atrial fibrillation. 5. Metastatic lung carcinoma. BRIEF HISTORY: This patient, a 56-year-old male patient presented and who was admitted with complaint of abdominal pain due to peritoneal carcinomatosis and metastatic lung disease. PHYSICAL EXAMINATION; HEENT; AT/NC; [place] NECK; supple without goiter or LAP RESPIRATORY; CTA without rales or rhonchi CARDIOVASCULAR; HRRR without murmurs or gallop ABDOMEN/GI; soft and non-tender; BS+ EXTREMITIES; no edema; pulses palpable NERVOUS; CN intact; no gross motor or sensory deficit. BRIEF HOSPITAL COURSE; The patient was admitted for the pain control. While in the hospital the patient's condition was discussed with the sister and the CT scan was obtained which showed progression of the disease to the liver. Further treatment plan was discussed and the patient was deemed not a candidate for physical therapy. Detailed discussion and options of treatment were discussed with the patient providing information to the patient that he has less than 20% chance of notable response plus the physical side effects of chemotherapy. Patient and family want to talk to the patient's children and make some decision. In the meantime, patient was continued on IV pain medication. He did not have any further complications. He was then discharged home in a stable condition with plan to take the current pain medication and follow up with the primary care physician. ALONSO / RICHY: [id number] / MTDD
--- NOTE | 2017-02-15 10:33 | CDI ---
Last Revision, January 2017 Documentation Clarification Form Date: 02/11/2017 3:16:00 PM From: Nusrat KatLILIAN, CCDS Admit Date: 02/06/2017 11:43:00 PM Patient Name: Joe Loya Visit Number: [id number] Discharge Date: 02/11/2017 ATTENTION: The Clinical Documentation Specialists (CDI) and [facility] Coding Staff appreciate your assistance in clarifying documentation. Please respond to the clarification below the line at the bottom and electronically sign. The CDI & [facility] Coding staff will review the response and follow-up if needed. Please note: Queries are made part of the Legal Health Record. If you have any questions, please contact the author of this message via ITS. Dr. Doris Ruiz: Patient is admitted with neoplastic related pain with known lung cancer with mets to the brain. Per the 02/07 CT Brain: The largest in the left cerebral hemisphere again measures 1.6 cm in the frontal lobe with surrounding vasogenic edema on series 12 image 27. History/Risk Factors: Cancer per above status post radiation & chemotherapy. Clinical Indicators: Presented with intractable pain, weakness, cachexia & confusion. Labs: WBC 18.6^, Hgb 12.1*, Neut 17.67^, Adalberto 10.9^, Mag 2.7^. Consults: Oncology & Pain Management Treatment: po & IV Dilaudid prn, IV fluid boluses, IV Ativan In your professional opinion, can you please clarify the underlying cause, condition or process, if any, represented by these findings? Cytotoxic cerebral edema Vasogenic cerebral edema Traumatic cerebral edema Please include with or without loss of consciousness and duration (if known) Other cerebral edema, please specify Cerebral edema, etiology unknown Intracerebral hemorrhage Please include site if known Unable to determine Other condition, please specify Please continue to document in your progress notes and discharge summary in order to capture severity of illness and risk of mortality. Include clinical findings that support your diagnosis. MTDD
--- NOTE | 2017-02-15 10:36 | CDI ---
Last Revision, January 2017 Documentation Clarification Form Date: 02/11/2017 3:25:00 PM From: Nusrat Kat Admit Date: 02/06/2017 11:43:00 PM Patient Name: Joe Loya Visit Number: [id number] Discharge Date: 02/11/2017 ATTENTION: The Clinical Documentation Specialists (CDI) and [facility] Coding Staff appreciate your assistance in clarifying documentation. Please respond to the clarification below the line at the bottom and electronically sign. The CDI & [facility] Coding staff will review the response and follow-up if needed. Please note: Queries are made part of the Legal Health Record. If you have any questions, please contact the author of this message via ITS. Dr. 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 Clinical Indicators: Presented with intractable neoplasm related pain. Labs: Total Protein 7.1 - 5.9*; Albumin 3.9 - 3.2*. Current BMI: 18.7 Nutritional assessment: Appetite: fair, Consuming 0-25% meals on clear liquid diet initially. Inadequate oral intake. Treatment: po & IV pain meds, IV antiemetics. Supplements: Ensure TID. In your professional opinion, can you please clarify if these findings signify one of the following conditions? Mild Protein Malnutrition Mild Protein-Calorie Malnutrition Moderate Protein Malnutrition Moderate Protein-Calorie Malnutrition Severe Protein Malnutrition Severe Protein-Calorie Malnutrition Other condition, please specify Unable to determine Please continue to document in your progress notes and discharge summary in order to capture severity of illness and risk of mortality. Include clinical findings that support your diagnosis. MTDD
== END 2017-02-11 17:45 | disposition hospice, inpatient (51) | DRG 861 ==
LOC: EC 21:29 → 5ONC 23:43
PROVIDERS: ADMIT Hospitalist; ATTEND Hospitalist
PROC: DBY27ZZ Contact Radiation of Lung (ICD-10-PCS; principal; 2017-02-08)
DX: G89.3 Neoplasm related pain (acute) (chronic) (principal); G93.6 Cerebral edema; G92 Toxic encephalopathy; R64 Cachexia; J90 Pleural effusion, not elsewhere classified; C78.6 Secondary malignant neoplasm of retroperitoneum and peritoneum; C79.31 Secondary malignant neoplasm of brain; C34.92 Malignant neoplasm of unspecified part of left bronchus or lung; E83.52 Hypercalcemia; I48.91 Unspecified atrial fibrillation; E86.0 Dehydration; K59.00 Constipation, unspecified; F41.9 Anxiety disorder, unspecified; Z51.5 Encounter for palliative care; Z83.2 Family history of diseases of the blood and blood-forming organs and certain disorders involving the immune mechanism; Z79.899 Other long term (current) drug therapy; Z79.891 Long term (current) use of opiate analgesic; Z79.01 Long term (current) use of anticoagulants; Z82.49 Family history of ischemic heart disease and other diseases of the circulatory system; Z80.3 Family history of malignant neoplasm of breast; Z80.7 Family history of other malignant neoplasms of lymphoid, hematopoietic and related tissues; Z82.3 Family history of stroke; Z87.891 Personal history of nicotine dependence; Z92.3 Personal history of irradiation; Z92.21 Personal history of antineoplastic chemotherapy; Z68.1 Body mass index [BMI] 19.9 or less, adult
CPT/HCPCS: 36415; 70470; 74177; 80048; 80053; 82550; 82553; 83735; 84484; 85025; 85027; 85610; 85730; 93005; 94760; 96361; 96374; 96376; 99285